=== PATIENT | female | born 1950 | race Caucasian/White ===

== ENCOUNTER 2020-04-14 16:45 | Inpatient (IN) | payer MEDICARE, OTHER ==
[2020-04-13] MEDS: METOPROLOL TART IMMED RELEASE 25 MG TABLET. PO SCH (22:35)
[~2020-04-14] VITALS: Ht 160 cm; Wt 73.0 kg
[~2020-04-14 16:45] MED LIST: ACET650S11 PR; AMLO10TA8 PO; ASPI-630 PO; ATOR10TA60 PO; BISA10SU4 PR; CLON1PAT6 TD; DARBEPOETIN ALFA IN POLYSORBAT SQ; FAMO20TA5 PO; HEPA50003 SQ; HYDR-2869 PO; HYDR200T5 PO; INSU100I11 SQ; METO25TA4 PO; NYST60PO TP; ONDA4TAB12 PO; Tpn Per Pharmacy MC; [UNRECOGNIZED DRUG - OTHER] MC
--- NOTE | 2020-04-14 16:48 | PHYS DOC ---
Past Medical History Past Medical History: Diabetes-Type II, Other Additional Past Medical Histor: RA,COVID-19 Past Surgical History: Other Additional Past Surgical Histo: COLON RESECTION/ABSCESS Smoking Status: Never Smoker Alcohol Use: Occasionally General Adult EDM: Chief Complaint: CHEST PAIN HPI: HPI: Patient is a 70 year old female who was brought here by EMS from home due to substernal chest pain that radiated to her right shoulder. Symptoms started 2- hour ago. Patient was given 224 mg aspirin and 1 dose of nitroglycerin by EMS. Patient said the pain improved with the nitroglycerin. Patient denies any cough or fever. Patient was treated for COVID-19 infection in January, had subsequent TWO negative COVID-19 INFECTION SINCE. Patient denies any history of coronary disease. Patient denies a history hypertension. Review of Systems: Review of Systems: Constitutional: Denies fever or chills. [] Eyes: Denies change in visual acuity. [] HENT: Denies nasal congestion or sore throat. [] Respiratory: Denies cough or shortness of breath. [] Cardiovascular: Positive chest pain, HEART palpitation. GI: Denies abdominal pain, nausea, vomiting, bloody stools or diarrhea. [] : Denies dysuria. [] Musculoskeletal: Denies back pain or joint pain. [] Integument: Denies rash. [] Neurologic: Denies headache, focal weakness or sensory changes. [] Endocrine: Denies polyuria or polydipsia. [] Lymphatic: Denies swollen glands. [] Psychiatric: Denies depression or anxiety. [] Heart Score: HEART Score for Chest Pain: HEART Score for Chest Pain Response (Comments) Value History Moderately Suspicious 1 ECG Nonspecific Repolarizatio 1 Age > 65 2 Risk Factors 1 or 2 Risk Factors 1 Troponin < Normal Limit 0 Total 5 Risk Factors: Risk Factors: DM, Current or recent (<one month) smoker, HTN, HLP, family history of CAD, obesity. Risk Scores: Score 0 - 3: 2.5% MACE over next 6 weeks - Discharge Home Score 4 - 6: 20.3% MACE over next 6 weeks - Admit for Clinical Observation Score 7 - 10: 72.7% MACE over next 6 weeks - Early Invasive Strategies Allergies: Allergies: Allergies Coded Allergies Type Severity Reaction Last Updated Verified erythromycin base Allergy Intermediate 20 Yes Physical Exam: PE: Constitutional: Well developed, well nourished, no acute distress, non-toxic appearance. [] HENT: Normocephalic, atraumatic, bilateral external ears normal, oropharynx moist, no oral exudates, nose normal. [] Eyes: PERRLA, EOMI, conjunctiva normal, no discharge. [] Neck: Normal range of motion, no tenderness, supple, no stridor. [] Cardiovascular irregular irregular rhythm rapid heart rate, no murmur, NO EDEMA Lungs & Thorax: Bilateral breath sounds clear to auscultation [] Abdomen: Bowel sounds normal, soft, no tenderness, no masses, no pulsatile masses. [] Skin: Warm, dry, no erythema, no rash. [] Back: No tenderness, no CVA tenderness. [] Extremities: No tenderness, no cyanosis, no clubbing, ROM intact, no edema. [] Neurologic: Alert and oriented X 3, normal motor function, normal sensory function, no focal deficits noted. [] Psychologic: Affect normal, judgement normal, mood normal. [] Current Patient Data: Labs: Current Medications Medications (Trade) Dose Ordered Sig/Krystal Route PRN Reason Start Time Stop Time Status Last Admin Dose Admin Diltiazem HCl (Cardizem Iv Push) 20 mg 1X ONCE IVP 04/14/20 17:00 04/14/20 17:01 DC 04/14/20 17:03 Diltiazem HCl 125 mg/Sodium Chloride 125 ml @ 5 mls/hr 1X ONCE IV 04/14/20 17:00 04/15/20 17:59 Sodium Chloride 1,000 ml @ 1,000 mls/hr 1X ONCE IV 04/14/20 17:15 04/14/20 18:14 04/14/20 17:02 EKG: EKG: EKG was done at 1648, heart rate 167 bpm, rapid heart rate, irregular rhythm, consistent with A. fib with RVR [ Radiology/Procedures: Radiology/Procedures: [][facility] [address] [place] [address] IMAGING REPORT Signed PATIENT: TIMOTHY WILLIS ACCOUNT: [id number] : 1950 LOCATION: ER AGE: 70 SEX: F EXAM STATUS: REG ER ORD. PHYSICIAN: ESTEFANI BETH DO REASON: CHEST PAIN PROCEDURE: PORTABLE CHEST 1V Exam: Chest one view INDICATION: Chest pain TECHNIQUE: Frontal view of the chest Comparisons: 03/04/2020 FINDINGS: The cardiomediastinal silhouette and pulmonary vessels are within normal limits. Patchy airspace disease in the right mid and lower lung. No pleural effusion. IMPRESSION: Patchy airspace disease in the right mid and lower lung, may relate to pneumonia. Follow-up imaging posttreatment to ensure resolution. Electronically signed by: Nathan Gibson MD (04/14/2020 5:44 PM) [id number] DICTATED and SIGNED BY: NATHAN GIBSON MD DATE: 04/14/20 1744 Course & Med Decision Making: Course & Med Decision Making Pertinent Labs and Imaging studies reviewed. (See chart for details) Patient is a 70-year-old female who was brought here by EMS from home due to chest pain and heart palpitation. Patient was found to be in atrial fibrilla tion with RVR, heart rate ranged from 157-200 beats per minute. Patient also has infiltration on the right side on lung, consistent with pneumonia. Patient will be admitted to hospital for further evaluation and treatment. Critical care time was [45] minutes which includes time at bedside, spent in discussion of patient's care with specialist and/or family members, with interpretation of laboratory and/or radiological studies and is exclusive of procedures. Dragon Disclaimer: Dragon Disclaimer: This electronic medical record was generated, in whole or in part, using a voice recognition dictation system. Departure Departure Impression: Primary Impression: Atrial fibrillation with RVR Additional Impressions: Pneumonia Chest pain Disposition: ADMITTED INPATIENT Admitting Physician: Woody Myers Condition: STABLE Referrals: WOODY MYERS MD (PCP) Justicifation of Admission Dx: Justifications for Admission: Justification of Admission Dx: Yes Comminuty Aquired Pneumonia: Hemodynamic Instability ESTEFANI BETH DO Apr 14, 2020 16:48
[2020-04-14] MEDS ORDERED: DILTIAZEM HCL 125 MG in IV NORMAL SALINE 100ML 100 ML IV ONE (17:00)
[2020-04-14] MEDS ORDERED: dilTIAZem IV PUSH 25 MG/5 ML VIAL IVP ONE (17:00)
[2020-04-14 17:05] LABS: BASO # 0.1 x10^3/uL (0.0-0.2); BASO % 1 % (0-3); EOS # 0.2 x10^3/uL (0.0-0.7); EOS % 1 % (0-3); HEMATOCRIT 34.1 % (36.0-47.0); HEMOGLOBIN 11.4 g/dL (12.0-15.5); LYMPH # 2.3 x10^3/uL (1.0-4.8); LYMPH % 13 % (24-48); MEAN CORPUSCULAR HEMOGLOBIN 30 pg (25-35); MEAN CORPUSCULAR HGB CONC 34 g/dL (31-37); MEAN CORPUSCULAR VOLUME 89 fL (79-100); MONO # 1.3 x10^3/uL (0.0-1.1); MONO % 7 % (0-9); NEUT # 13.9 x10^3/uL (1.8-7.7); NEUT % 78 % (31-73); PLATELET COUNT 347 x10^3/uL (140-400); RED BLOOD COUNT 3.83 x10^6/uL (3.50-5.40); RED CELL DISTRIBUTION WIDTH 16.8 % (11.5-14.5); WHITE BLOOD COUNT 17.8 x10^3/uL (4.0-11.0)
[2020-04-14 17:14] LABS: PROTHROMBIN TIME PATIENT 13.6 SEC (11.7-14.0)
[2020-04-14] MEDS ORDERED: IV NORMAL SALINE 1000ML BAG 1,000 ML IV ONE (17:15)
[2020-04-14 17:29] LABS: ALBUMIN 2.9 g/dL (3.4-5.0); ALBUMIN/GLOBULIN RATIO 0.8 (1.0-1.7); CALCIUM 6.2 mg/dL (8.5-10.1); CREATININE 1.3 mg/dL (0.6-1.0); GFR 40.6; MAGNESIUM 0.6 mg/dL (1.8-2.4); POTASSIUM 3.2 mmol/L (3.5-5.1); TOTAL BILIRUBIN 0.6 mg/dL (0.2-1.0); TOTAL PROTEIN 6.6 g/dL (6.4-8.2)
[2020-04-14 17:31] LABS: FREE T4 1.5 ng/dL (0.76-1.46); THYROID STIM HORMONE (TSH) 0.788 uIU/mL (0.358-3.74)
--- NOTE | 2020-04-14 17:47 | RAD ---
Exam: Chest one view INDICATION: Chest pain TECHNIQUE: Frontal view of the chest Comparisons: 03/04/2020 FINDINGS: The cardiomediastinal silhouette and pulmonary vessels are within normal limits. Patchy airspace disease in the right mid and lower lung. No pleural effusion. IMPRESSION: Patchy airspace disease in the right mid and lower lung, may relate to pneumonia. Follow-up imaging posttreatment to ensure resolution. Electronically signed by: Nathan Martinez MD (04/14/2020 5:44 PM) [id number]
[2020-04-14] MEDS ORDERED: ONDANSETRON PF 4 MG/2 ML VIAL. IV PRN (18:00)
[2020-04-14 18:12] LABS: % LYMPHS 9 % (24-48); % SEGS 91 % (35-66); PLT ESTIMATE ADEQUATE (ADEQUATE)
[2020-04-14] MEDS ORDERED: POTASSIUM CHLORIDE 20 MEQ TABLET.ER. PO ONE ×2 (18:15→22:00)
[2020-04-14] MEDS ORDERED: CALCIUM CHLORIDE 1,000 MG/10 ML DISP.SYRIN IV ONE (18:15)
[2020-04-14] MEDS ORDERED: cefTRIAXone IV Push 1 GM VIAL. IVP ONE (18:30)
[2020-04-14 20:05] VITALS: BP 154/92
--- NOTE | 2020-04-14 20:05 | NUR ---
Pt arrived to unit per cart pt ambulated to room with standby assist and walker, pt placed on monitor and oriented to surroundings vs obtained and stable pt denied any chest pain at this time poc explained call light placed in reach assessment completed will resume care and continue to monitor pt.
[2020-04-14 21:14] VITALS: BP 146/66
[2020-04-14] MEDS ORDERED: GLIM4TAB8 PO (21:14)
[2020-04-14] MEDS ORDERED: PRED1TAB3 PO (21:14)
[2020-04-14] MEDS ORDERED: MELA5TAB20 PO (21:14)
[2020-04-14] MEDS ORDERED: PANT40TA77 PO (21:14)
[2020-04-14] MEDS ORDERED: CIPR250T30 PO (21:14)
[2020-04-14] MEDS ORDERED: METO25TA4 PO (21:14)
[2020-04-14] MEDS ORDERED: AMLO5TAB10 PO (21:14)
--- NOTE | 2020-04-14 21:28 | NUR ---
Call Placed to Dr. Myers re: home medications and further orders.
--- NOTE | 2020-04-14 21:57 | NUR ---
returned call orders received.
[2020-04-14] MEDS ORDERED: MAGNESIUM OXIDE 400 MG TABLET PO ONE (22:00)
[2020-04-14] MEDS ORDERED: ONDANSETRON ODT 4 MG TAB.RAPDIS. PO PRN (22:15)
[2020-04-14] MEDS: ATORVASTATIN CALCIUM 10 MG TABLET. PO SCH (22:35)
[2020-04-14] MEDS: CIPROFLOXACIN HCL 250 MG TABLET. PO SCH (22:35)
[2020-04-14] MEDS: ALPRAZolam 0.25 MG TABLET PO PRN (22:35)
--- NOTE | 2020-04-14 22:35 | EKG ---
[facility] [address] [place] [address] Test Date: 2020-04-14 Test Time: 16:48:07 Pat Name: ITMOTHY WILLIS Department: Room: [facility] 1 Gender: F Recooperer: : 1950 Requested By: ESTEFANI BTEH Order Number: [id number] Reading MD: Lee Hernandez Measurements Intervals [place] Rate: 167 P: MO: QRS: 2 QRSD: 92 T: 72 QT: 286 QTc: 485 Interpretive Statements ATRIAL FIBRILLATION WITH RVR ST & T ABNORMALITY, CONSIDER HIGH LATERAL ISCHEMIA OR LEFT VENTRICULAR STRAIN Electronically Signed On 05-11-2020 12:46:08 CDT by Lee Hernandez
[2020-04-14] MEDS ORDERED: DILTIAZEM HCL 125 MG in IV NORMAL SALINE 100ML 100 ML IV PRN (23:00)
[2020-04-14 23:06] VITALS: BP 152/91
[2020-04-15] VITALS (9 sets, daily range): BP systolic 124–149; BP diastolic 64–86
[2020-04-15] MEDS: ACETAMINOPHEN 325 MG TABLET. PO PRN ×2 (00:14→22:15)
--- NOTE | 2020-04-15 00:20 | NUR ---
Call placed to Dr. Pringle re pt c/oo increase chest pain with pain radiating to rt arm and neck.
--- NOTE | 2020-04-15 00:41 | EKG ---
[facility] [address] [place] [address] Test Date: 2020-04-15 Test Time: 00:36:41 Pat Name: TIMOTHY WILLIS Department: Room: [facility] Gender: F Collect On Delivery Clerk: [facility] : 1950 Requested By: WOODY SAMPSON Order Number: [id number] Reading MD: Chris Velazquez MD Measurements Intervals [place] Rate: 117 P: 0 MD: 96 QRS: 14 QRSD: 92 T: 66 QT: 322 QTc: 454 Interpretive Statements SINUS TACHYCARDIA Electronically Signed On 04-16-2020 16:22:51 CDT by Chris Velazquez MD
--- NOTE | 2020-04-15 01:10 | NUR ---
Dr. Pringle returned call pain medication orders received no further orders given troponin result given will see pt in a.m..
[2020-04-15] MEDS ORDERED: MORPHINE SULFATE 2 MG/ML VIAL. IV PRN (01:15)
--- NOTE | 2020-04-15 01:38 | NUR ---
Cardizem gtt titrated off pt hr 90-100 and in SR/ST will monitor pt.
--- NOTE | 2020-04-15 02:05 | NUR ---
Call placed to Dr. Myers RE: orders and positive sepsis screen.
[2020-04-15] MEDS ORDERED: FUROSEMIDE 40 MG/4 ML VIAL. IVP ONE (02:30)
[2020-04-15] MEDS: PANTOPRAZOLE 40 MG TABLET.DR. PO SCH (06:09)
[2020-04-15] MEDS: CIPROFLOXACIN HCL 250 MG TABLET. PO SCH (08:51)
[2020-04-15] MEDS: predniSONE 10 MG TABLET PO SCH (08:51)
[2020-04-15] MEDS: GLIMEPIRIDE 2 MG TABLET. PO SCH (08:52)
[2020-04-15] MEDS: ASPIRIN CHEWABLE 81 MG TABLET. PO SCH (08:52)
[2020-04-15] MEDS: METOPROLOL TART IMMED RELEASE 25 MG TABLET. PO SCH ×2 (08:52→18:07)
[2020-04-15] MEDS: amLODIPine BESYLATE 5 MG TABLET PO SCH (08:52)
--- NOTE | 2020-04-15 10:16 | PDOC2 ---
CARDIAC CONSULT DATE OF CONSULT Date of Consult DATE: 04/15/20 TIME: 10:06 REASON FOR CONSULT Reason for Consult: Chest pain, AFIB RVR REFERRING PHYSICIAN Referring Physician: Mitchell SOURCE Source: Chart review HISTORY OF PRESENT ILLNESS HISTORY OF PRESENT ILLNESS This is a pleasant 70 yo female known to me who came in with palpitations that started yesterday morning. Associated with chest tightness which radiates to amisha k and right arm. Upon admission she was noted with AFIB RVR. This was noted from previous admission when she was hospitalized due to covid where she ended up with vent and significant stay in the hospital. She was later discharge at [facility] facility and then [facility] rehab and was discharged 2 weeks ago to home. No recent falls or injury. Currently no SOA and no chest pain. No fever or chills. PAST MEDICAL HISTORY Cardiovascular: CHF Pulmonary: Pneumonia (prior covidARDS) Heme/Onc: Anemia NOS Musculoskeletal: Osteoarthritis Rheumatologic: Rheumatoid arthritis Renal/: Chronic renal insuff, UTI Endocrine: Diabetes (2) PAST SURGICAL HISTORY Past Surgical History dialysis cath placement FAMILY HISTORY Family History: Family History Unknown SOCIAL HISTORY ALCOHOL: none Drugs: None CURRENT MEDICATIONS CURRENT MEDICATIONS Current Medications Medications (Trade) Dose Ordered Sig/Krystal Route PRN Reason Start Time Stop Time Status Last Admin Dose Admin Diltiazem HCl (Cardizem Iv Push) 20 mg 1X ONCE IVP 04/14/20 17:00 04/14/20 17:01 DC 04/14/20 17:03 Diltiazem HCl 125 mg/Sodium Chloride 125 ml @ 5 mls/hr 1X ONCE IV 04/14/20 17:00 04/15/20 17:59 04/14/20 17:08 Sodium Chloride 1,000 ml @ 1,000 mls/hr 1X ONCE IV 04/14/20 17:15 04/14/20 18:14 DC 04/14/20 17:02 Calcium Chloride (Calcium Chloride) 1,000 mg 1X ONCE IV 04/14/20 18:15 04/14/20 18:16 DC 04/14/20 18:34 Potassium Chloride (Klor-Con) 40 meq 1X ONCE PO 04/14/20 18:15 04/14/20 18:16 DC 04/14/20 18:39 Ceftriaxone Sodium (Rocephin) 1 gm 1X ONCE IVP 04/14/20 18:30 04/14/20 18:31 DC 04/14/20 18:52 Magnesium Oxide (Magnesium Oxide) 800 mg 1X ONCE PO 04/14/20 22:00 04/14/20 22:02 DC 04/14/20 22:35 Potassium Chloride (Klor-Con) 20 meq 1X ONCE PO 04/14/20 22:00 04/14/20 22:02 DC 04/14/20 22:35 Alprazolam (Xanax) 0.25 mg PRN Q8HRS PRN PO ANXIETY / AGITATION 04/14/20 22:00 04/14/20 22:35 Amlodipine Besylate (Norvasc) 5 mg DAILY PO 04/15/20 09:00 04/15/20 08:52 Aspirin (Aspirin Chewable) 81 mg DAILYWBKFT PO 04/15/20 08:00 04/15/20 08:52 Atorvastatin Calcium (Lipitor) 10 mg QHS PO 04/14/20 22:30 04/14/20 22:35 Ciprofloxacin (Cipro) 250 mg BID PO 04/14/20 22:30 04/15/20 08:51 Metoprolol Tartrate (Lopressor) 25 mg BID PO 04/14/20 22:30 04/15/20 08:52 Pantoprazole Sodium (Protonix) 40 mg DAILYAC PO 04/15/20 07:30 04/15/20 06:09 Prednisone (Prednisone) 10 mg DAILY PO 04/15/20 09:00 04/15/20 08:51 Acetaminophen (Tylenol) 650 mg PRN Q6HRS PRN PO PAIN 04/14/20 23:45 04/15/20 00:14 Morphine Sulfate (Morphine Sulfate) 2 mg PRN Q2HR PRN IV PAIN 04/15/20 01:15 04/15/20 01:23 Furosemide (Lasix) 40 mg 1X ONCE IVP 04/15/20 02:30 04/15/20 02:31 DC 04/15/20 02:31 ALLERGIES ALLERGIES: Coded Allergies: erythromycin base (Verified Allergy, Intermediate, 02/03/20) ROS Review of System 14 point ROS evlauated with pertinent positives noted per HPI PHYSICAL EXAM PHYSICAL EXAM Discussed with RN General: Alert, Oriented X3, Cooperative, No acute distress HEENT: Atraumatic Lungs: Other (diminished) Abdomen: Soft Extremities: No cyanosis Skin: No breakdown Neuro: Normal speech Psych/Mental Status: Mental status NL VITALS/I&O VITALS/I&O: Vital Signs Date Time Temp Pulse Resp B/P (MAP) Pulse Ox O2 Delivery O2 Flow Rate FiO2 04/15/20 08:52 107 132/80 04/15/20 07:00 97.0 16 97 Room Air 3.0 97.0 I & O 04/14/20 04/14/20 04/15/20 15:00 23:00 07:00 Intake Total 1940 ml 110 ml Output Total 600 ml 1500 ml Balance 1340 ml -1390 ml LABS Lab: Laboratory Tests Test 04/14/20 16:50 04/14/20 20:14 04/14/20 22:41 04/14/20 22:50 White Blood Count 17.8 x10^3/uL (4.0-11.0) H Red Blood Count 3.83 x10^6/uL (3.50-5.40) Hemoglobin 11.4 g/dL (12.0-15.5) L Hematocrit 34.1 % (36.0-47.0) L Mean Corpuscular Volume 89 fL (79-100) Mean Corpuscular Hemoglobin 30 pg (25-35) Mean Corpuscular Hemoglobin Concent 34 g/dL (31-37) Red Cell Distribution Width 16.8 % (11.5-14.5) H Platelet Count 347 x10^3/uL (140-400) Neutrophils (%) (Auto) 78 % (31-73) H Lymphocytes (%) (Auto) 13 % (24-48) L Monocytes (%) (Auto) 7 % (0-9) Eosinophils (%) (Auto) 1 % (0-3) Basophils (%) (Auto) 1 % (0-3) Neutrophils # (Auto) 13.9 x10^3/uL (1.8-7.7) H Lymphocytes # (Auto) 2.3 x10^3/uL (1.0-4.8) Monocytes # (Auto) 1.3 x10^3/uL (0.0-1.1) H Eosinophils # (Auto) 0.2 x10^3/uL (0.0-0.7) Basophils # (Auto) 0.1 x10^3/uL (0.0-0.2) Segmented Neutrophils % 91 % (35-66) H Lymphocytes % 9 % (24-48) L Platelet Estimate Adequate (ADEQUATE) Prothrombin Time 13.6 SEC (11.7-14.0) Prothrombin Time INR 1.1 (0.8-1.1) Activated Partial Thromboplast Time 26 SEC (24-38) Sodium Level 143 mmol/L (136-145) Potassium Level 3.2 mmol/L (3.5-5.1) L Chloride Level 104 mmol/L (98-107) Carbon Dioxide Level 23 mmol/L (21-32) Anion Gap 16 (6-14) H Blood Urea Nitrogen 20 mg/dL (7-20) Creatinine 1.3 mg/dL (0.6-1.0) H Estimated GFR (Cockcroft-Gault) 40.6 BUN/Creatinine Ratio 15 (6-20) Glucose Level 233 mg/dL (70-99) H Lactic Acid Level 2.2 mmol/L (0.4-2.0) H 3.2 mmol/L (0.4-2.0) H Calcium Level 6.2 mg/dL (8.5-10.1) L Magnesium Level 0.6 mg/dL (1.8-2.4) L Total Bilirubin 0.6 mg/dL (0.2-1.0) Aspartate Amino Transferase (AST) 117 U/L (15-37) H Alanine Aminotransferase (ALT) 250 U/L (14-59) H Alkaline Phosphatase 95 U/L (46-116) Troponin I Quantitative < 0.017 ng/mL (0.000-0.055) 0.110 ng/mL (0.000-0.055) LN-Dcv-A-Type Natriuretic Peptide 42752 pg/mL (0-124) H Total Protein 6.6 g/dL (6.4-8.2) Albumin 2.9 g/dL (3.4-5.0) L Albumin/Globulin Ratio 0.8 (1.0-1.7) L Lipase 212 U/L (73-393) Thyroid Stimulating Hormone (TSH) 0.788 uIU/mL (0.358-3.74) Free Thyroxine 1.50 ng/dL (0.76-1.46) H Glucose (Fingerstick) 271 mg/dL (70-99) H Test 04/15/20 00:01 04/15/20 06:25 04/15/20 07:14 Troponin I Quantitative 0.139 ng/mL (0.000-0.055) 0.103 ng/mL (0.000-0.055) Magnesium Level 0.9 mg/dL (1.8-2.4) L Glucose (Fingerstick) 64 mg/dL (70-99) L Laboratory Tests 04/14/20 16:50 Laboratory Tests 04/14/20 16:50 ASSESSMENT/PLAN ASSESSMENT/PLAN 1. Possible Pneumonia: prior recovered Covid-19 2. AFIB RVR: in the setting of metabolic derangement and PNA. Paroxysmal per chart review. Presently SR/ST with intermittent bursts 3. Chest pain: likely from RVR 3. Possible sepsis 4. DARLENE on CKD 5. Mild Elevated troponin: suspect demand mediate 6. Acute on Chronic diastolic CHF: SOA better 7. DM2 8. Chronic steroid use with underlying hx of RA Recommendations Retest covid pending TTE if negative. MCOT as an outpt Replace Mg and K Agree with metoprolol, ASA for now. Will stop TTS 1 to allow room for further BB adjustment ABx per PCP HILARIO ENGLE [employer] Apr 15, 2020 10:16
[2020-04-15] MEDS ORDERED: MAGNESIUM SULFATE 4GM 100 ML IV ONE (10:30)
[2020-04-15 10:39] LABS: CALCIUM 7.1 mg/dL (8.5-10.1); CREATININE 1.2 mg/dL (0.6-1.0); GFR 44.5; POTASSIUM 3.7 mmol/L (3.5-5.1)
--- NOTE | 2020-04-15 11:19 | PDOC ---
Infectious Disease Note Vital Signs: Vital Signs Vital Signs Date Time Temp Pulse Resp B/P (MAP) Pulse Ox O2 Delivery O2 Flow Rate FiO2 04/15/20 08:52 107 132/80 04/15/20 08:00 Nasal Cannula 3.0 04/15/20 07:00 97.0 16 97 97.0 Medications: Inpatient Meds: Current Medications Medications (Trade) Dose Ordered Sig/Krystal Start Time Stop Time Status Last Admin Dose Admin Acetaminophen (Tylenol) 650 mg PRN Q6HRS PRN 04/14/20 23:45 04/15/20 00:14 650 MG Alprazolam (Xanax) 0.25 mg PRN Q8HRS PRN 04/14/20 22:00 04/14/20 22:35 0.25 MG Amlodipine Besylate (Norvasc) 5 mg DAILY 04/15/20 09:00 04/15/20 08:52 5 MG Aspirin (Aspirin Chewable) 81 mg DAILYWBKFT 04/15/20 08:00 04/15/20 08:52 81 MG Atorvastatin Calcium (Lipitor) 10 mg QHS 04/14/20 22:30 04/14/20 22:35 10 MG Calcium Chloride (Calcium Chloride) 1,000 mg 1X ONCE 04/14/20 18:15 04/14/20 18:16 DC 04/14/20 18:34 1,000 MG Ceftriaxone Sodium (Rocephin) 1 gm Q24H 04/15/20 18:00 Ciprofloxacin (Cipro) 250 mg BID 04/14/20 22:30 04/15/20 08:51 250 MG Clonidine HCl (Catapres Tts-2) 1 patch WEEKLY 04/21/20 09:00 Diltiazem HCl (Cardizem Iv Push) 20 mg 1X ONCE 04/14/20 17:00 04/14/20 17:01 DC 04/14/20 17:03 20 MG Diltiazem HCl 125 mg/Sodium Chloride 125 ml @ 5 mls/hr CONT PRN 04/14/20 23:00 Furosemide (Lasix) 40 mg 1X ONCE 04/15/20 02:30 04/15/20 02:31 DC 04/15/20 02:31 40 MG Glimepiride (Amaryl) 4 mg DAILY 04/15/20 09:00 Magnesium Oxide (Magnesium Oxide) 800 mg 1X ONCE 04/14/20 22:00 04/14/20 22:02 DC 04/14/20 22:35 800 MG Magnesium Sulfate 100 ml @ 25 mls/hr 1X ONCE 04/15/20 10:30 04/15/20 14:29 04/15/20 11:00 25 MLS/HR Metoprolol Tartrate (Lopressor) 25 mg BID 04/14/20 22:30 04/15/20 08:52 25 MG Morphine Sulfate (Morphine Sulfate) 2 mg PRN Q2HR PRN 04/15/20 01:15 04/15/20 01:23 2 MG Ondansetron HCl (Zofran Odt) 4 mg PRN Q4HRS PRN 04/14/20 22:15 Ondansetron HCl (Zofran) 4 mg PRN Q8HRS PRN 04/14/20 18:00 04/15/20 17:59 Pantoprazole Sodium (Protonix) 40 mg DAILYAC 04/15/20 07:30 04/15/20 06:09 40 MG Potassium Chloride (Klor-Con) 20 meq 1X ONCE 04/14/20 22:00 04/14/20 22:02 DC 04/14/20 22:35 20 MEQ Prednisone (Prednisone) 10 mg DAILY 04/15/20 09:00 04/15/20 08:51 10 MG Sodium Chloride 1,000 ml @ 1,000 mls/hr 1X ONCE 04/14/20 17:15 04/14/20 18:14 DC 04/14/20 17:02 1,000 MLS/HR Labs: Lab Laboratory Tests Test 04/14/20 16:50 04/14/20 20:14 04/14/20 22:41 04/14/20 22:50 White Blood Count 17.8 x10^3/uL (4.0-11.0) Red Blood Count 3.83 x10^6/uL (3.50-5.40) Hemoglobin 11.4 g/dL (12.0-15.5) Hematocrit 34.1 % (36.0-47.0) Mean Corpuscular Volume 89 fL (79-100) Mean Corpuscular Hemoglobin 30 pg (25-35) Mean Corpuscular Hemoglobin Concent 34 g/dL (31-37) Red Cell Distribution Width 16.8 % (11.5-14.5) Platelet Count 347 x10^3/uL (140-400) Neutrophils (%) (Auto) 78 % (31-73) Lymphocytes (%) (Auto) 13 % (24-48) Monocytes (%) (Auto) 7 % (0-9) Eosinophils (%) (Auto) 1 % (0-3) Basophils (%) (Auto) 1 % (0-3) Neutrophils # (Auto) 13.9 x10^3/uL (1.8-7.7) Lymphocytes # (Auto) 2.3 x10^3/uL (1.0-4.8) Monocytes # (Auto) 1.3 x10^3/uL (0.0-1.1) Eosinophils # (Auto) 0.2 x10^3/uL (0.0-0.7) Basophils # (Auto) 0.1 x10^3/uL (0.0-0.2) Segmented Neutrophils % 91 % (35-66) Lymphocytes % 9 % (24-48) Platelet Estimate Adequate (ADEQUATE) Prothrombin Time 13.6 SEC (11.7-14.0) Prothromb Time International Ratio 1.1 (0.8-1.1) Activated Partial Thromboplast Time 26 SEC (24-38) Sodium Level 143 mmol/L (136-145) Potassium Level 3.2 mmol/L (3.5-5.1) Chloride Level 104 mmol/L (98-107) Carbon Dioxide Level 23 mmol/L (21-32) Anion Gap 16 (6-14) Blood Urea Nitrogen 20 mg/dL (7-20) Creatinine 1.3 mg/dL (0.6-1.0) Estimated GFR (Cockcroft-Gault) 40.6 BUN/Creatinine Ratio 15 (6-20) Glucose Level 233 mg/dL (70-99) Lactic Acid Level 2.2 mmol/L (0.4-2.0) 3.2 mmol/L (0.4-2.0) Calcium Level 6.2 mg/dL (8.5-10.1) Magnesium Level 0.6 mg/dL (1.8-2.4) Total Bilirubin 0.6 mg/dL (0.2-1.0) Aspartate Amino Transf (AST/SGOT) 117 U/L (15-37) Alanine Aminotransferase (ALT/SGPT) 250 U/L (14-59) Alkaline Phosphatase 95 U/L (46-116) Troponin I Quantitative < 0.017 ng/mL (0.000-0.055) 0.110 ng/mL (0.000-0.055) SD-Nrz-R-Type Natriuretic Peptide 20133 pg/mL (0-124) Total Protein 6.6 g/dL (6.4-8.2) Albumin 2.9 g/dL (3.4-5.0) Albumin/Globulin Ratio 0.8 (1.0-1.7) Lipase 212 U/L (73-393) Thyroid Stimulating Hormone (TSH) 0.788 uIU/mL (0.358-3.74) Free Thyroxine 1.50 ng/dL (0.76-1.46) Glucose (Fingerstick) 271 mg/dL (70-99) Test 04/15/20 00:01 04/15/20 06:25 04/15/20 07:14 Troponin I Quantitative 0.139 ng/mL (0.000-0.055) 0.103 ng/mL (0.000-0.055) Sodium Level 146 mmol/L (136-145) Potassium Level 3.7 mmol/L (3.5-5.1) Chloride Level 106 mmol/L (98-107) Carbon Dioxide Level 27 mmol/L (21-32) Anion Gap 13 (6-14) Blood Urea Nitrogen 19 mg/dL (7-20) Creatinine 1.2 mg/dL (0.6-1.0) Estimated GFR (Cockcroft-Gault) 44.5 Glucose Level 90 mg/dL (70-99) Calcium Level 7.1 mg/dL (8.5-10.1) Magnesium Level 0.9 mg/dL (1.8-2.4) Glucose (Fingerstick) 64 mg/dL (70-99) Objective: Assessment: Patient seen and examined ID consult dictated Impression Chest pain Hypoxemia Leukocytosis and lactic acidosis A. fib with RVR High BNP and troponin History of COVID-02 February 2020 with prolonged hospitalization Rheumatoid arthritis on prednisone Plan: Plan of Care Continue ceftriaxone Add doxy Stop Cipro Follow-up labs and cultures Continue supportive care Thank you [id number] CARMEN DANIELS MD Apr 15, 2020 11:19
--- NOTE | 2020-04-15 11:38 | CONS ---
DATE OF CONSULTATION: 04/15/2020 REFERRING PHYSICIAN: Johnathon Myers MD REASON FOR CONSULTATION: History of COVID-19 infection with cough. HISTORY OF PRESENT ILLNESS: A 70-year-old female diagnosed with COVID-19 infection in 01/2020 requiring prolonged hospitalization here. The patient was brought from home to [facility] due to substernal chest pain radiating to the right shoulder and associated cough, palpitation which started 2 hours prior to admission. The patient received aspirin and nitroglycerin by EMS. The patient was found to have AFib with rapid RVR. She denies any fever, nausea, vomiting, diarrhea, abdominal pain. White count was 17.8, hemoglobin of 11.9, platelets of 347. [place] [address]. Lactate of 2.2. Troponin elevation. COVID-19 has been sent out. The patient was started on ceftriaxone and ciprofloxacin. ID consult has been requested for antibiotic management. The patient remains in sinus tachycardia. Denies any fevers, headache. Does have cough, brings up some sputum, no blood in it. Chest pain has improved. Palpitation has improved. Denies any nausea, vomiting, diarrhea, abdominal pain. Denies any recent travel. PAST MEDICAL HISTORY: Positive for rheumatoid arthritis, diabetes, COVID positive in 01/2020 with hypoxic respiratory failure, renal insufficiency in the past, history of colon resection for abscess, coronary artery disease. SOCIAL HISTORY: Denies smoking, ETOH. ALLERGIES: ERYTHROMYCIN. CURRENT MEDICATIONS: Ceftriaxone, Cipro. PHYSICAL EXAMINATION: VITAL SIGNS: Temperature 97, pulse 107, respiratory rate 16, blood pressure 132/80, oxygen saturation 97% on 3 liters by nasal cannula. GENERAL: Alert and oriented x 3 female, in no acute distress, on O2. HEENT: Normocephalic, atraumatic. Anicteric. No thrush. Oral mucosa moist. NECK: Supple, no JVD, no lymphadenopathy. LUNGS: Clear bilaterally. No wheezing. HEART: S1, S2, tachycardia, irregular. ABDOMEN: Soft, nontender, nondistended, no rebound, no guarding. EXTREMITIES: No edema, no cyanosis. DERMATOLOGIC: Warm, dry. No generalized rash. NEUROLOGIC: Alert and oriented x 3, grossly nonfocal. PSYCHIATRIC: Cooperative, appropriate mood and affect. LABORATORY DATA: WBC 17.8, hemoglobin 11.4, hematocrit 34.1, platelets 347. Sodium 146, potassium 3.7, chloride 106, bicarbonate 27, BUN 19, creatinine 1.2, glucose 90. Lactate 3.2. Troponin elevated. Magnesium 1.9, calcium 7.1. COVID-19 pending. IMPRESSION: 1. Chest pain with atrial fibrillation, rapid ventricular response. 2. Leukocytosis and lactic acidosis. 3. Hypoxemia with pulmonary infiltrates. 4. Diabetes. 5. Rheumatoid arthritis. 6. History of colon resection. 7. History of COVID-19 in 01/2020 with prolonged hospitalization. 8. High BNP. 9. Mild acute kidney injury. 10. Hypomagnesemia, hypocalcemia. 11. The patient on prednisone. RECOMMENDATIONS: 1. Continue ceftriaxone. 2. Discontinue ciprofloxacin. 3. Start the patient on empiric doxycycline. 4. Follow up labs and cultures. 5. Follow up repeat COVID-19. 6. Continue supportive care. Thank you for allowing me to participate in this patient's care. If you have any questions, do not hesitate to contact me. Discussed with nursing staff. CARMEN DANIELS MD DR: JULIAN/siva JOB#: [id number] / [id number] CALLUM
[2020-04-15] MEDS: DOXYCYCLINE HYCLATE 100 MG TABLET PO SCH ×2 (11:59→20:53)
[2020-04-15] MEDS: cefTRIAXone IV Push 1 GM VIAL. IVP SCH (16:35)
--- NOTE | 2020-04-15 16:47 | NUR ---
SW following. Reviewed chart and spoke with RN. Pt from home with spouse. Pt was diagnosed with COVID back in January of 2020 and had a prolonged hospitalization. Pt discharged to [facility] on last admission. Pt being tested for COVID on this admission and results are pending. Pt on 3l 02 and IV Rocephin. PT/OT evaluation requested. SW to continue following.
--- NOTE | 2020-04-15 17:03 | HP ---
ADMIT DATE: CHIEF COMPLAINT AND HISTORY OF PRESENT ILLNESS: This 70-year-old white female well known to me from followup in the office. The patient had sudden onset of chest pain and palpitations on the day of admission. EMS arrived at the house with the pulse rate was 180. I spoke with her on the phone. I reassured him that probably it was AFib, which she had had black transiently during her stay with COVID pneumonia with respiratory failure and prolonged mechanical ventilation. She went to [facility] after extubation and then to [facility] and has returned to home within the last week or so where she is making steady progresses for her strength, etc. She was indeed found to have AFib with RVR and was admitted to the hospital with a Cardizem drip. PAST MEDICAL HISTORY: Remarkable for the COVID-19 respiratory failure with pneumonia, rheumatoid arthritis, type 2 diabetes. PAST SURGICAL HISTORY: Remarkable for prior colon resection for diverticular abscess. MEDICATIONS: Brought with the patient, listed on the computer and have been addressed. ALLERGIES: SHE IS ALLERGIC TO ERYTHROMYCIN. SOCIAL HISTORY: She is nonsmoker and rarely drinks alcohol. Does not abuse drugs. FAMILY HISTORY: Noncontributory. REVIEW OF SYSTEMS: As mentioned above. PHYSICAL EXAMINATION: GENERAL: She is a well-developed, well-nourished white female, appears in no acute distress. VITAL SIGNS: Stable. She is afebrile. HEAD, EYES, EARS, NOSE AND THROAT: Unremarkable. NECK: Supple without bruit or thyromegaly. CHEST: Clear to auscultation and percussion. HEART: She is in a mild sinus tachycardia at the time of my exam with a rate of 104. ABDOMEN: Soft, nontender, without hepatosplenomegaly or masses. EXTREMITIES: Without cyanosis, clubbing, edema. NEUROLOGIC: She is intact. LABORATORY DATA: Initial investigation reveals some very mild acute kidney injury with creatinine of 1.3, but she was 0.8 or 0.9 in my office a week ago. She is hypokalemic with a potassium of 3.2. She has protein-calorie malnutrition with albumin of 2.9. She does have elevated liver function tests with an AST of 117, ALT of 250 which were much higher during the hospitalization, but I believe it returned to normal. Initial BNP is 17,395 and we have been unable to do an echo on her due to her COVID positive status, the last hospitalization should do that during the stay. TSH is within normal limits. Lactic acid was elevated initially at 2.2 and then increased to 3.2. Troponin was mildly elevated, but decreasing. INR was within normal limits. Initial white count of 17,800 with a left shift, but she does take prednisone at home. Chest x-ray on admission shows patchy airspace disease in the right mid and lower lung, may be possibly related to pneumonia. IMPRESSION: 1. Atrial fibrillation with rapid ventricular response, currently controlled with a Cardizem drip. 2. Hypokalemia and hypomagnesemia with replacement ordered. 3. Leukocytosis and possible pneumonia. Rocephin has been started. She was on Cipro for urinary tract infection prior to admission. 4. Mild acute kidney injury, protein-calorie malnutrition, COVID-19, respiratory failure survivor. PLAN: The patient has been admitted. Cardiology has been consulted. Cardizem will be continued. Rocephin has been started for pneumonia. ID has been consulted and the patient will be monitored, managed and treated appropriately. WOODY SAMPSON MD DR: GARRY/siva JOB#: [id number] / [id number]
[2020-04-15] MEDS: MAGNESIUM OXIDE 400 MG TABLET PO SCH (20:53)
[2020-04-15] MEDS: LACTOBACILLUS RHAMNOSUS GG 1 CAPSULE. PO SCH (20:53)
[2020-04-15] MEDS: ATORVASTATIN CALCIUM 10 MG TABLET. PO SCH (20:53)
[2020-04-15] MEDS: ALPRAZolam 0.25 MG TABLET PO PRN (22:15)
[2020-04-16] MEDS: METOPROLOL TART IMMED RELEASE 25 MG TABLET. PO SCH ×2 (00:31→06:17)
[2020-04-16 03:12] VITALS: BP 127/70
[2020-04-16 03:31] LABS: BASO # 0.2 x10^3/uL (0.0-0.2); BASO % 1 % (0-3); EOS # 0.4 x10^3/uL (0.0-0.7); EOS % 3 % (0-3); HEMATOCRIT 33.3 % (36.0-47.0); HEMOGLOBIN 11.1 g/dL (12.0-15.5); LYMPH # 3.9 x10^3/uL (1.0-4.8); LYMPH % 24 % (24-48); MEAN CORPUSCULAR HEMOGLOBIN 30 pg (25-35); MEAN CORPUSCULAR HGB CONC 33 g/dL (31-37); MEAN CORPUSCULAR VOLUME 89 fL (79-100); MONO % 6 % (0-9); NEUT # 10.6 x10^3/uL (1.8-7.7); NEUT % 66 % (31-73); PLATELET COUNT 319 x10^3/uL (140-400); RED BLOOD COUNT 3.73 x10^6/uL (3.50-5.40); RED CELL DISTRIBUTION WIDTH 17.1 % (11.5-14.5); WHITE BLOOD COUNT 16.1 x10^3/uL (4.0-11.0)
[2020-04-16 03:47] LABS: ALBUMIN/GLOBULIN RATIO 0.9 (1.0-1.7); CALCIUM 7.2 mg/dL (8.5-10.1); CREATININE 1.1 mg/dL (0.6-1.0); GFR 49.2; TOTAL BILIRUBIN 0.4 mg/dL (0.2-1.0); TOTAL PROTEIN 6.3 g/dL (6.4-8.2)
[2020-04-16 07:00] VITALS: BP 149/89
[2020-04-16] MEDS: ACETAMINOPHEN 325 MG TABLET. PO PRN (09:13)
[2020-04-16] MEDS: GLIMEPIRIDE 2 MG TABLET. PO SCH (09:13)
[2020-04-16] MEDS: MAGNESIUM OXIDE 400 MG TABLET PO SCH ×2 (09:13→21:12)
[2020-04-16] MEDS: LACTOBACILLUS RHAMNOSUS GG 1 CAPSULE. PO SCH ×2 (09:13→21:12)
[2020-04-16] MEDS: DOXYCYCLINE HYCLATE 100 MG TABLET PO SCH ×2 (09:13→21:12)
[2020-04-16] MEDS: predniSONE 10 MG TABLET PO SCH (09:13)
[2020-04-16] MEDS: ASPIRIN CHEWABLE 81 MG TABLET. PO SCH (09:13)
[2020-04-16] MEDS: PANTOPRAZOLE 40 MG TABLET.DR. PO SCH (09:13)
[2020-04-16] MEDS: amLODIPine BESYLATE 5 MG TABLET PO SCH (09:14)
[2020-04-16 11:00] VITALS: BP 114/54
--- NOTE | 2020-04-16 12:03 | PDOC ---
Infectious Disease Note Subjective Subjective Feeling better, hungry Denies SOA/cough/heart palpitations/F/C/N/V ROS ROS as mentioned above Vital Sign Vital Signs Vital Signs Date Time Temp Pulse Resp B/P (MAP) Pulse Ox O2 Delivery O2 Flow Rate FiO2 04/16/20 09:14 108 149/89 04/16/20 07:00 99.2 18 95 Nasal Cannula 3.0 99.2 Physical Exam PHYSICAL EXAM GENERAL: Propped up in bed, alert in NAD HEENT: Oral cavity clear. NECK: Supple LUNGS: Clear bilaterally. No wheezing. HEART: S1, S2, irregular. ABDOMEN: Obese, soft, nontender EXTREMITIES: No gross edema, no cyanosis. DERMATOLOGIC: Warm, dry. No generalized rash. NEUROLOGIC: Alert and oriented x 3, grossly nonfocal. PSYCHIATRIC: Cooperative, appropriate mood and affect. Labs Lab Laboratory Tests Test 04/15/20 16:51 04/15/20 21:30 04/16/20 03:13 04/16/20 07:56 Glucose (Fingerstick) 264 mg/dL (70-99) 145 mg/dL (70-99) 95 mg/dL (70-99) White Blood Count 16.1 x10^3/uL (4.0-11.0) Red Blood Count 3.73 x10^6/uL (3.50-5.40) Hemoglobin 11.1 g/dL (12.0-15.5) Hematocrit 33.3 % (36.0-47.0) Mean Corpuscular Volume 89 fL (79-100) Mean Corpuscular Hemoglobin 30 pg (25-35) Mean Corpuscular Hemoglobin Concent 33 g/dL (31-37) Red Cell Distribution Width 17.1 % (11.5-14.5) Platelet Count 319 x10^3/uL (140-400) Neutrophils (%) (Auto) 66 % (31-73) Lymphocytes (%) (Auto) 24 % (24-48) Monocytes (%) (Auto) 6 % (0-9) Eosinophils (%) (Auto) 3 % (0-3) Basophils (%) (Auto) 1 % (0-3) Neutrophils # (Auto) 10.6 x10^3/uL (1.8-7.7) Lymphocytes # (Auto) 3.9 x10^3/uL (1.0-4.8) Monocytes # (Auto) 1.0 x10^3/uL (0.0-1.1) Eosinophils # (Auto) 0.4 x10^3/uL (0.0-0.7) Basophils # (Auto) 0.2 x10^3/uL (0.0-0.2) Sodium Level 142 mmol/L (136-145) Potassium Level 4.0 mmol/L (3.5-5.1) Chloride Level 103 mmol/L (98-107) Carbon Dioxide Level 27 mmol/L (21-32) Anion Gap 12 (6-14) Blood Urea Nitrogen 18 mg/dL (7-20) Creatinine 1.1 mg/dL (0.6-1.0) Estimated GFR (Cockcroft-Gault) 49.2 BUN/Creatinine Ratio 16 (6-20) Glucose Level 99 mg/dL (70-99) Calcium Level 7.2 mg/dL (8.5-10.1) Magnesium Level 1.9 mg/dL (1.8-2.4) Total Bilirubin 0.4 mg/dL (0.2-1.0) Aspartate Amino Transf (AST/SGOT) 34 U/L (15-37) Alanine Aminotransferase (ALT/SGPT) 197 U/L (14-59) Alkaline Phosphatase 94 U/L (46-116) Total Protein 6.3 g/dL (6.4-8.2) Albumin 3.0 g/dL (3.4-5.0) Albumin/Globulin Ratio 0.9 (1.0-1.7) Test 04/16/20 11:35 04/16/20 11:43 Glucose (Fingerstick) 145 mg/dL (70-99) 98 mg/dL (70-99) Micro Microbiology 04/15/20 Blood Culture - Preliminary, Resulted NO GROWTH AFTER 1 DAY Objective Assessment Chest pain with atrial fibrillation, rapid ventricular response. Leukocytosis and lactic acidosis. Hypoxemia with pulmonary infiltrates. Diabetes. Rheumatoid arthritis. History of colon resection. History of COVID-19 in 01/2020 with prolonged hospitalization. High BNP. Mild acute kidney injury. Hypomagnesemia, hypocalcemia. Plan Plan of Care Continue ceftriaxone and doxy (started 04/15) On steroids Probiotics off Cipro Follow-up labs. COVID-19 pending F/u cultures Supportive care Feeling better and eating. Less SOA and cough Attending Co-Sign Attending Co-Sign The patient was seen and interviewed as well as examined at the bedside. The chart was reviewed. The case was discussed. Agree with the plan of care. YUSRA VIZCARRA APRN Apr 16, 2020 12:03 MORELIA WHITNEY MD Apr 16, 2020 17:54
--- NOTE | 2020-04-16 12:23 | PDOC ---
HILARIO ENGLE CONFIGURATION TECHNICIAN 04/16/20 1223: CARDIO Progress Notes Date and Time Date of Service 04/16/2020 Time of Evaluation 1030 Subjective Subjective: No Chest Pain, No shortness of breath, No Palpitations Vitals Vitals Vital Signs Date Time Temp Pulse Resp B/P (MAP) Pulse Ox O2 Delivery O2 Flow Rate FiO2 04/16/20 09:14 108 149/89 04/16/20 08:00 Nasal Cannula 3.0 04/16/20 07:00 99.2 18 95 99.2 Weight Weight [ ] Input and Output Intake and Output Intake and Output 04/16/20 07:00 Intake Total 1220 ml Output Total 1500 ml Balance -280 ml Intake Oral 1120 ml IV Total 100 ml Output Urine Total 1500 ml Laboratory Labs Laboratory Tests Test 04/15/20 16:51 04/15/20 21:30 04/16/20 03:13 04/16/20 07:56 Glucose (Fingerstick) 264 mg/dL (70-99) 145 mg/dL (70-99) 95 mg/dL (70-99) White Blood Count 16.1 x10^3/uL (4.0-11.0) Red Blood Count 3.73 x10^6/uL (3.50-5.40) Hemoglobin 11.1 g/dL (12.0-15.5) Hematocrit 33.3 % (36.0-47.0) Mean Corpuscular Volume 89 fL (79-100) Mean Corpuscular Hemoglobin 30 pg (25-35) Mean Corpuscular Hemoglobin Concent 33 g/dL (31-37) Red Cell Distribution Width 17.1 % (11.5-14.5) Platelet Count 319 x10^3/uL (140-400) Neutrophils (%) (Auto) 66 % (31-73) Lymphocytes (%) (Auto) 24 % (24-48) Monocytes (%) (Auto) 6 % (0-9) Eosinophils (%) (Auto) 3 % (0-3) Basophils (%) (Auto) 1 % (0-3) Neutrophils # (Auto) 10.6 x10^3/uL (1.8-7.7) Lymphocytes # (Auto) 3.9 x10^3/uL (1.0-4.8) Monocytes # (Auto) 1.0 x10^3/uL (0.0-1.1) Eosinophils # (Auto) 0.4 x10^3/uL (0.0-0.7) Basophils # (Auto) 0.2 x10^3/uL (0.0-0.2) Sodium Level 142 mmol/L (136-145) Potassium Level 4.0 mmol/L (3.5-5.1) Chloride Level 103 mmol/L (98-107) Carbon Dioxide Level 27 mmol/L (21-32) Anion Gap 12 (6-14) Blood Urea Nitrogen 18 mg/dL (7-20) Creatinine 1.1 mg/dL (0.6-1.0) Estimated GFR (Cockcroft-Gault) 49.2 BUN/Creatinine Ratio 16 (6-20) Glucose Level 99 mg/dL (70-99) Calcium Level 7.2 mg/dL (8.5-10.1) Magnesium Level 1.9 mg/dL (1.8-2.4) Total Bilirubin 0.4 mg/dL (0.2-1.0) Aspartate Amino Transf (AST/SGOT) 34 U/L (15-37) Alanine Aminotransferase (ALT/SGPT) 197 U/L (14-59) Alkaline Phosphatase 94 U/L (46-116) Total Protein 6.3 g/dL (6.4-8.2) Albumin 3.0 g/dL (3.4-5.0) Albumin/Globulin Ratio 0.9 (1.0-1.7) Test 04/16/20 11:35 04/16/20 11:43 Glucose (Fingerstick) 145 mg/dL (70-99) 98 mg/dL (70-99) Microbiology Micro Microbiology 04/15/20 Blood Culture - Preliminary, Resulted NO GROWTH AFTER 1 DAY Physical Exam HEENT: Neck Supple W Full Motion Chest: Symmetric LUNGS: Clear to Auscultation Heart: S1S2, RRR (sinus tach) Abdomen: Soft N/T Extremities: No Calf Tenderness Neurology: alert, oriented, follow commands Other Exams Discussed with casket assembler Assessment 1. Possible Pneumonia: prior recovered Covid-19 2. AFIB RVR: in the setting of metabolic derangement and PNA. Paroxysmal per chart review. Presently SR/ST 3. Chest pain: likely from RVR 3. Possible sepsis 4. DARLENE on CKD 5. Mild Elevated troponin: suspect demand mediated 6. Acute on Chronic diastolic CHF: SOA better 7. DM2 8. Chronic steroid use with underlying hx of RA Recommendations Retest covid pending TTE if negative. Dsicussed with [facility] as an outpt as well as outpt stress test. Follow up in office. Replace Mg and K as warranted Continue with metoprolol. ASA for now. Will stop TTS 1 to allow room for further BB adjustment ABx per PCP Justicifation of Admission Dx: Justifications for Admission: Justification of Admission Dx: Yes Comminuty Aquired Pneumonia: Hemodynamic Instability AMITA BRUNNER MD 04/16/20 1626: CARDIO Progress Notes Plan Plan Case discussed with YARN POLISHING MACHINE OPERATOR. Chart reviewed. Supportive care from CV standpoint Overall constellation of symptoms suggestive of PNA and COVID, Trivial troponin elevation with normal EKG and non-cardiac chest pain. For now, continue pulmonary treatment. Will consider outpt stress testing. Will obtain echo when COVID testing complete. Thanks HILARIO ENGLE CONFIGURATION TECHNICIAN Apr 16, 2020 12:23 AMITA BRUNNER MD Apr 16, 2020 16:26
[2020-04-16] MEDS ORDERED: METOPROLOL TART IMMED RELEASE 25 MG TABLET. PO ONE (12:30)
--- NOTE | 2020-04-16 12:42 | PDOC ---
GENERAL General: vss and afebrile. awake and alert and ate 1/2 of breakfast. WBC 16.1K. electrolyte abnormalities corrected. chest clear, heart slightly tachycardic, ab domen benign. covid testing pending. remains on O2 and iv antibiotics for presumed pneumonia. has right sided chest pain today that is reproducible with palpation over costochondral area and will add celebrex. otherwise same. VITAL SIGNS/I&O Vital Signs/I&O: Vital Signs Date Time Temp Pulse Resp B/P (MAP) Pulse Ox O2 Delivery O2 Flow Rate FiO2 04/16/20 12:33 100 114/54 04/16/20 08:00 Nasal Cannula 3.0 04/16/20 07:00 99.2 18 95 99.2 I & O 04/15/20 04/15/20 04/16/20 15:00 23:00 07:00 Intake Total 490 ml 330 ml 400 ml Output Total 600 ml 500 ml 400 ml Balance -110 ml -170 ml 0 ml ALLERGIES Allergies: Allergies Coded Allergies Type Severity Reaction Last Updated Verified erythromycin base Allergy Intermediate 02/03/20 Yes MEDS Medications: Current Medications Medications (Trade) Dose Ordered Sig/Krystal Route PRN Reason Start Time Stop Time Status Last Admin Dose Admin Ceftriaxone Sodium (Rocephin) 1 gm Q24H IVP 04/15/20 18:00 04/15/20 16:35 Lactobacillus Rhamnosus (Culturelle) 1 cap BID PO 04/15/20 21:00 04/16/20 09:13 Magnesium Oxide (Magnesium Oxide) 400 mg BID PO 04/15/20 21:00 04/16/20 09:13 Metoprolol Tartrate (Lopressor) 25 mg Q6HRS PO 04/15/20 18:00 04/16/20 12:21 DC 04/16/20 06:17 Metoprolol Tartrate (Lopressor) 25 mg 1X ONCE PO 04/16/20 12:30 04/16/20 12:31 DC 04/16/20 12:33 LAB Lab: Laboratory Tests Test 04/15/20 16:51 04/15/20 21:30 04/16/20 03:13 04/16/20 07:56 Glucose (Fingerstick) 264 mg/dL (70-99) H 145 mg/dL (70-99) H 95 mg/dL (70-99) White Blood Count 16.1 x10^3/uL (4.0-11.0) H Red Blood Count 3.73 x10^6/uL (3.50-5.40) Hemoglobin 11.1 g/dL (12.0-15.5) L Hematocrit 33.3 % (36.0-47.0) L Mean Corpuscular Volume 89 fL (79-100) Mean Corpuscular Hemoglobin 30 pg (25-35) Mean Corpuscular Hemoglobin Concent 33 g/dL (31-37) Red Cell Distribution Width 17.1 % (11.5-14.5) H Platelet Count 319 x10^3/uL (140-400) Neutrophils (%) (Auto) 66 % (31-73) Lymphocytes (%) (Auto) 24 % (24-48) Monocytes (%) (Auto) 6 % (0-9) Eosinophils (%) (Auto) 3 % (0-3) Basophils (%) (Auto) 1 % (0-3) Neutrophils # (Auto) 10.6 x10^3/uL (1.8-7.7) H Lymphocytes # (Auto) 3.9 x10^3/uL (1.0-4.8) Monocytes # (Auto) 1.0 x10^3/uL (0.0-1.1) Eosinophils # (Auto) 0.4 x10^3/uL (0.0-0.7) Basophils # (Auto) 0.2 x10^3/uL (0.0-0.2) Sodium Level 142 mmol/L (136-145) Potassium Level 4.0 mmol/L (3.5-5.1) Chloride Level 103 mmol/L (98-107) Carbon Dioxide Level 27 mmol/L (21-32) Anion Gap 12 (6-14) Blood Urea Nitrogen 18 mg/dL (7-20) Creatinine 1.1 mg/dL (0.6-1.0) H Estimated GFR (Cockcroft-Gault) 49.2 BUN/Creatinine Ratio 16 (6-20) Glucose Level 99 mg/dL (70-99) Calcium Level 7.2 mg/dL (8.5-10.1) L Magnesium Level 1.9 mg/dL (1.8-2.4) Total Bilirubin 0.4 mg/dL (0.2-1.0) Aspartate Amino Transferase (AST) 34 U/L (15-37) Alanine Aminotransferase (ALT) 197 U/L (14-59) H Alkaline Phosphatase 94 U/L (46-116) Total Protein 6.3 g/dL (6.4-8.2) L Albumin 3.0 g/dL (3.4-5.0) L Albumin/Globulin Ratio 0.9 (1.0-1.7) L Test 04/16/20 11:35 04/16/20 11:43 Glucose (Fingerstick) 145 mg/dL (70-99) H 98 mg/dL (70-99) Laboratory Tests 04/16/20 03:13 Laboratory Tests 04/16/20 03:13 Justicifation of Admission Dx: Justifications for Admission: Justification of Admission Dx: Yes Comminuty Aquired Pneumonia: Hemodynamic Instability WOODY SAMPSON MD Apr 16, 2020 12:42
--- NOTE | 2020-04-16 13:21 | NUR ---
SW following. Discussed with RN, pt's COVID-19 test still pending. Pt requiring 3L oxygen, which she does not use at home. PT/OT ordered. SW will continue to follow.
[2020-04-16 15:00] VITALS: BP 112/63
[2020-04-16] MEDS: cefTRIAXone IV Push 1 GM VIAL. IVP SCH (17:22)
[2020-04-16] MEDS: CELECOXIB 100 MG CAPSULE. PO SCH (17:22)
[2020-04-16 19:00] VITALS: BP 100/58
[2020-04-16] MEDS: ALPRAZolam 0.25 MG TABLET PO PRN (21:11)
[2020-04-16] MEDS: ATORVASTATIN CALCIUM 10 MG TABLET. PO SCH (21:12)
[2020-04-16] MEDS: METOPROLOL TART IMMED RELEASE 50 MG TABLET. PO SCH (21:12)
[2020-04-16 22:20] VITALS: BP 122/66
[2020-04-17] VITALS (7 sets, daily range): BP systolic 115–144; BP diastolic 57–86
[2020-04-17] MEDS: METOPROLOL TART IMMED RELEASE 50 MG TABLET. PO SCH ×2 (08:25→20:45)
[2020-04-17] MEDS: amLODIPine BESYLATE 5 MG TABLET PO SCH (08:26)
[2020-04-17] MEDS: MAGNESIUM OXIDE 400 MG TABLET PO SCH ×2 (08:26→20:45)
[2020-04-17] MEDS: PANTOPRAZOLE 40 MG TABLET.DR. PO SCH (08:26)
[2020-04-17] MEDS: predniSONE 10 MG TABLET PO SCH (08:26)
[2020-04-17] MEDS: LACTOBACILLUS RHAMNOSUS GG 1 CAPSULE. PO SCH ×2 (08:26→20:45)
[2020-04-17] MEDS: DOXYCYCLINE HYCLATE 100 MG TABLET PO SCH ×2 (08:26→20:45)
[2020-04-17] MEDS: GLIMEPIRIDE 2 MG TABLET. PO SCH (08:26)
[2020-04-17] MEDS: ASPIRIN CHEWABLE 81 MG TABLET. PO SCH (08:26)
--- NOTE | 2020-04-17 08:59 | PDOC ---
GENERAL General: vss and afebrile. awake and alert and eating breakfast. chest pain resolved with celebrex. chest clear, heart normal rate, abdomen benign. sugars fair. will await covid testing and continue same. will need echo when negative for covid. VITAL SIGNS/I&O Vital Signs/I&O: Vital Signs Date Time Temp Pulse Resp B/P (MAP) Pulse Ox O2 Delivery O2 Flow Rate FiO2 04/17/20 08:26 86 121/86 04/17/20 07:30 96.1 14 96 Nasal Cannula 2.0 96.1 I & O 04/16/20 04/16/20 04/17/20 15:00 23:00 07:00 Intake Total 900 ml 390 ml 300 ml Output Total 900 ml 500 ml 500 ml Balance 0 ml -110 ml -200 ml ALLERGIES Allergies: Allergies Coded Allergies Type Severity Reaction Last Updated Verified erythromycin base Allergy Intermediate 02/03/20 Yes MEDS Medications: Current Medications Medications (Trade) Dose Ordered Sig/Krystal Route PRN Reason Start Time Stop Time Status Last Admin Dose Admin Metoprolol Tartrate (Lopressor) 50 mg BID PO 04/16/20 21:00 04/17/20 08:25 Metoprolol Tartrate (Lopressor) 25 mg 1X ONCE PO 04/16/20 12:30 04/16/20 12:31 DC 04/16/20 12:33 Celecoxib (CeleBREX) 200 mg DAILY16 PO 04/16/20 16:00 04/16/20 17:22 LAB Lab: Laboratory Tests Test 04/16/20 11:35 04/16/20 11:43 04/16/20 17:29 04/16/20 21:16 Glucose (Fingerstick) 145 mg/dL (70-99) H 98 mg/dL (70-99) 238 mg/dL (70-99) H 175 mg/dL (70-99) H Test 04/17/20 07:21 Glucose (Fingerstick) 103 mg/dL (70-99) H Justicifation of Admission Dx: Justifications for Admission: Justification of Admission Dx: Yes Comminuty Aquired Pneumonia: Hemodynamic Instability WOODY SAMPSON MD Apr 17, 2020 08:59
--- NOTE | 2020-04-17 13:21 | PDOC ---
PROGRESS NOTES Subjective Subjective Comfortable, no new complaints Objective Objective Vital Signs Date Time Temp Pulse Resp B/P (MAP) Pulse Ox O2 Delivery O2 Flow Rate FiO2 04/17/20 11:45 97.1 96 18 128/69 (88) 98 Nasal Cannula 2.0 97.1 Intake and Output 04/17/20 07:00 Intake Total 1590 ml Output Total 1900 ml Balance -310 ml Intake Oral 1590 ml Output Urine Total 1900 ml Physical Exam Abdomen: Soft Extremities: No cyanosis General: Alert, Oriented X3, Cooperative, No acute distress HEENT: Atraumatic Lungs: Other (diminished) Neuro: Normal speech Psych/Mental Status: Mental status NL Skin: No breakdown Assessment Assessment 1. Possible Pneumonia: prior recovered Covid-19. Repeat COVID test pending. ID team following. 2. AFIB RVR: in the setting of metabolic derangement and PNA. Paroxysmal per chart review. Presently sinus tachycardia. Plan for outpatient event monitor. 3. Chest pain: likely from RVR, currently resolved. Slight troponin elevation probably demand ischemia. Plan for 2D echo if COVID test negative. We will consider ischemic evaluation as an outpatient. 3. Acute on Chronic diastolic CHF: Better compensated. 4. DARLENE on CKD 5. DM2: Per IM Plan Plan of Care Problems Medical Problems: (1) Atrial fibrillation with RVR Status: Acute (2) Chest pain Status: Acute (3) Pneumonia Status: Acute Comment Review of Relevant I have reviewed the following items [place] (where applicable) has been applied. Labs Laboratory Tests Test 04/16/20 17:29 04/16/20 21:16 04/17/20 07:21 04/17/20 11:32 Glucose (Fingerstick) 238 mg/dL (70-99) 175 mg/dL (70-99) 103 mg/dL (70-99) 159 mg/dL (70-99) Microbiology 04/15/20 Blood Culture - Preliminary, Resulted NO GROWTH AFTER 2 DAYS Medications Current Medications Celecoxib (CeleBREX) 200 mg DAILY16 PO Last administered on 04/16/20at 17:22; Start 04/16/20 at 16:00 Clonidine HCl (Catapres Tts-2) 1 patch WEEKLY TD ; Start 04/21/20 at 09:00; Stop 04/15/20 at 16:43; Status DC Metoprolol Tartrate (Lopressor) 50 mg BID PO Last administered on 04/17/20at 08:25; Start 04/16/20 at 21:00 Vitals/I & O Vital Sign - Last 24 Hours 04/16/20 04/16/20 04/16/20 04/16/20 15:00 19:00 19:00 21:12 Temp 96.3 97.6 96.3 97.6 Pulse 98 96 98 B/P (MAP) 112/63 (79) 100/58 (72) 127/73 Pulse Ox 95 97 O2 Delivery Nasal Cannula Nasal Cannula Nasal Cannula O2 Flow Rate 3.0 2.0 2.0 04/16/20 04/17/20 04/17/20 04/17/20 22:20 02:11 07:30 07:30 Temp 96.5 97.0 96.1 96.5 97.0 96.1 Pulse 86 83 86 Resp 18 14 B/P (MAP) 122/66 (84) 133/66 (88) 121/86 (98) Pulse Ox 98 96 96 O2 Delivery Nasal Cannula Nasal Cannula Nasal Cannula O2 Flow Rate 2.0 2.0 2.0 2.0 04/17/20 04/17/20 04/17/20 08:25 08:26 11:45 Temp 97.1 97.1 Pulse 86 86 96 Resp 18 B/P (MAP) 121/86 121/86 128/69 (88) Pulse Ox 98 O2 Delivery Nasal Cannula O2 Flow Rate 2.0 Intake and Output 04/16/20 04/16/20 04/17/20 15:00 23:00 07:00 Intake Total 900 ml 390 ml 300 ml Output Total 900 ml 500 ml 500 ml Balance 0 ml -110 ml -200 ml LO RAMOS MD Apr 17, 2020 13:21
--- NOTE | 2020-04-17 14:41 | PDOC ---
Infectious Disease Note Subjective Subjective COVID-19 negative Little bit of a dry cough Denies SOA/heart palpitations/F/C/N/V ROS ROS as mentioned above Vital Sign Vital Signs Vital Signs Date Time Temp Pulse Resp B/P (MAP) Pulse Ox O2 Delivery O2 Flow Rate FiO2 04/17/20 11:45 97.1 96 18 128/69 (88) 98 Nasal Cannula 2.0 97.1 Physical Exam PHYSICAL EXAM GENERAL: Propped up in bed, alert in NAD HEENT: Oral cavity clear. NECK: Supple LUNGS: Clear bilaterally. HEART: S1, S2, irregular. ABDOMEN: Obese, soft, nontender EXTREMITIES: No gross edema, no cyanosis. DERMATOLOGIC: Warm, dry. No generalized rash. NEUROLOGIC: Alert and oriented x 3, grossly nonfocal. PSYCHIATRIC: Cooperative, appropriate mood and affect. PIV looks ok Labs Lab Laboratory Tests Test 04/16/20 17:29 04/16/20 21:16 04/17/20 07:21 04/17/20 11:32 Glucose (Fingerstick) 238 mg/dL (70-99) 175 mg/dL (70-99) 103 mg/dL (70-99) 159 mg/dL (70-99) Micro Microbiology 04/15/20 Blood Culture - Preliminary, Resulted NO GROWTH AFTER 1 DAY Objective Assessment Chest pain with atrial fibrillation, rapid ventricular response. Leukocytosis and lactic acidosis. Hypoxemia with pulmonary infiltrates. Diabetes. Rheumatoid arthritis. History of colon resection. History of COVID-19 in 01/2020 with prolonged hospitalization. High BNP. Mild acute kidney injury. Hypomagnesemia, hypocalcemia. Plan Plan of Care Continue ceftriaxone and doxy (started 04/15) On steroids Probiotics off Cipro Follow-up labs. COVID-19 neg F/u cultures Supportive care Wean abx soon Attending Co-Sign Attending Co-Sign The patient was seen and interviewed as well as examined at the bedside. The chart was reviewed. The case was discussed. Agree with the plan of care. YUSRA VIZCARRA APRN Apr 17, 2020 14:41 MORELIA WHITNEY MD Apr 17, 2020 15:08
[2020-04-17] MEDS: CELECOXIB 100 MG CAPSULE. PO SCH (15:48)
[2020-04-17] MEDS: cefTRIAXone IV Push 1 GM VIAL. IVP SCH (17:57)
[2020-04-17] MEDS: ATORVASTATIN CALCIUM 10 MG TABLET. PO SCH (20:45)
[2020-04-17] MEDS: ALPRAZolam 0.25 MG TABLET PO PRN (20:52)
[2020-04-18 03:40] VITALS: BP 136/65
[2020-04-18 05:33] LABS: BASO % 0 % (0-3); EOS # 0.2 x10^3/uL (0.0-0.7); EOS % 2 % (0-3); HEMATOCRIT 28.8 % (36.0-47.0); HEMOGLOBIN 9.6 g/dL (12.0-15.5); LYMPH # 2.2 x10^3/uL (1.0-4.8); LYMPH % 20 % (24-48); MEAN CORPUSCULAR HEMOGLOBIN 30 pg (25-35); MEAN CORPUSCULAR HGB CONC 33 g/dL (31-37); MEAN CORPUSCULAR VOLUME 89 fL (79-100); MONO # 0.6 x10^3/uL (0.0-1.1); MONO % 6 % (0-9); NEUT # 7.9 x10^3/uL (1.8-7.7); NEUT % 72 % (31-73); PLATELET COUNT 268 x10^3/uL (140-400); RED BLOOD COUNT 3.22 x10^6/uL (3.50-5.40); RED CELL DISTRIBUTION WIDTH 16.4 % (11.5-14.5)
[2020-04-18 06:01] LABS: ALBUMIN 2.5 g/dL (3.4-5.0); ALBUMIN/GLOBULIN RATIO 0.7 (1.0-1.7); CALCIUM 7.5 mg/dL (8.5-10.1); CREATININE 1.1 mg/dL (0.6-1.0); GFR 49.2; POTASSIUM 3.5 mmol/L (3.5-5.1); TOTAL BILIRUBIN 0.2 mg/dL (0.2-1.0)
[2020-04-18 07:00] VITALS: BP 131/72
[2020-04-18] MEDS: ASPIRIN CHEWABLE 81 MG TABLET. PO SCH (08:36)
[2020-04-18] MEDS: amLODIPine BESYLATE 5 MG TABLET PO SCH (08:36)
[2020-04-18] MEDS: MAGNESIUM OXIDE 400 MG TABLET PO SCH (08:37)
[2020-04-18] MEDS: GLIMEPIRIDE 2 MG TABLET. PO SCH (08:37)
[2020-04-18 08:38] VITALS: BP 131/72
[2020-04-18] MEDS: predniSONE 10 MG TABLET PO SCH (08:38)
[2020-04-18] MEDS: DOXYCYCLINE HYCLATE 100 MG TABLET PO SCH (08:38)
[2020-04-18] MEDS: LACTOBACILLUS RHAMNOSUS GG 1 CAPSULE. PO SCH (08:38)
[2020-04-18] MEDS: METOPROLOL TART IMMED RELEASE 50 MG TABLET. PO SCH (08:38)
[2020-04-18] MEDS: PANTOPRAZOLE 40 MG TABLET.DR. PO SCH (08:38)
[2020-04-18] MEDS ORDERED: DOXY100T PO (09:14)
[2020-04-18] MEDS ORDERED: METO50TA6 PO (09:14)
--- NOTE | 2020-04-18 09:26 | DS ---
DATE OF DISCHARGE: 04/18/2020 PRIMARY DIAGNOSIS: Atrial fibrillation with rapid ventricular response. ADDITIONAL DIAGNOSES: Chest pain, shortness of breath, right lower lobe pneumonia, status post COVID infection, diabetes, rheumatoid arthritis, hypoxia. CHIEF COMPLAINT AND HISTORY OF PRESENT ILLNESS: This 70-year-old white female admitted through the Emergency Room with sudden onset of shortness of breath and chest pain, found to be in AFib with a rapid ventricular response with a very mildly elevated troponin, which was self-limiting and a BNP of 15,000. SUMMARY OF STAY: The patient was admitted and initially treated with some Lasix, became hypoxic during the stay requiring oxygen up until 24 hours prior to discharge, was covered with antibiotics for right lower lobe pneumonia and leukocytosis. She did improve throughout the stay. Medicines were adjusted for the atrial fibrillation after initial Cardizem drip to control the rate. She was doing well by the time of discharge. We really wanted to get an echocardiogram, but by the time she became COVID negative on repeat testing, it was Monday and by Monday, they do not do echos on the s, so this will have to be done as an outpatient to better elucidate this elevated BNP, which was present during her last stay in addition and we were never able to do an echocardiogram. Clinically, she does not look like she has congestive heart failure at all and it may have all been acute due to the atrial fibrillation with poor output secondary to the same. DISPOSITION: The patient is discharged to home. She was discharged on ADA diet. ACTIVITY: As tolerated. FOLLOWUP: Office in 1 week. DISCHARGE MEDICATIONS: Listed on the med rec and have been addressed and basically differences will be that of stopping the clonidine patch. At this point, her metoprolol tartrate has been increased to 50 b.i.d. from 25 b.i.d. She will complete a 7-day course of doxycycline 100 b.i.d. as well as a 7-day course of Vantin 200 mg b.i.d. for another week for her pneumonia. WOODY SAMPSON MD DR: GARRY/siva JOB#: [id number] / [id number]
--- NOTE | 2020-04-18 10:01 | PDOC ---
PROGRESS NOTES Subjective Subjective Comfortable, denied any chest pain or palpitations. Objective Objective Vital Signs Date Time Temp Pulse Resp B/P (MAP) Pulse Ox O2 Delivery O2 Flow Rate FiO2 04/18/20 08:38 81 131/72 04/18/20 08:00 Room Air 2.0 04/18/20 07:00 98.4 18 93 98.4 Intake and Output 04/18/20 07:00 Intake Total 980 ml Output Total 1245 ml Balance -265 ml Intake Oral 980 ml Output Urine Total 1245 ml # Voids 1 Physical Exam Abdomen: Soft Extremities: No cyanosis General: Alert, Oriented X3, Cooperative, No acute distress HEENT: Atraumatic Lungs: Other (diminished) Neuro: Normal speech Psych/Mental Status: Mental status NL Skin: No breakdown Assessment Assessment 1. Possible Pneumonia: prior recovered Covid-19. Repeat COVID test negative. ID team following. 2. AFIB RVR: in the setting of metabolic derangement and PNA. Paroxysmal per chart review. Presently in sinus rhythm. Plan for outpatient event monitor. 3. Chest pain: likely from RVR, currently resolved. Slight troponin elevation probably demand ischemia. Plan for 2D echo if COVID test negative. We will consider ischemic evaluation as an outpatient. 3. Acute on Chronic diastolic CHF: Better compensated. 4. DARLENE on CKD 5. DM2: Per IM Plan Plan of Care Problems Medical Problems: (1) Atrial fibrillation with RVR Status: Acute (2) Chest pain Status: Acute (3) Pneumonia Status: Acute Comment Review of Relevant I have reviewed the following items [place] (where applicable) has been applied. Labs Laboratory Tests Test 04/17/20 11:32 04/17/20 17:13 04/17/20 20:51 04/18/20 04:05 Glucose (Fingerstick) 159 mg/dL (70-99) 203 mg/dL (70-99) 255 mg/dL (70-99) White Blood Count 11.0 x10^3/uL (4.0-11.0) Red Blood Count 3.22 x10^6/uL (3.50-5.40) Hemoglobin 9.6 g/dL (12.0-15.5) Hematocrit 28.8 % (36.0-47.0) Mean Corpuscular Volume 89 fL (79-100) Mean Corpuscular Hemoglobin 30 pg (25-35) Mean Corpuscular Hemoglobin Concent 33 g/dL (31-37) Red Cell Distribution Width 16.4 % (11.5-14.5) Platelet Count 268 x10^3/uL (140-400) Neutrophils (%) (Auto) 72 % (31-73) Lymphocytes (%) (Auto) 20 % (24-48) Monocytes (%) (Auto) 6 % (0-9) Eosinophils (%) (Auto) 2 % (0-3) Basophils (%) (Auto) 0 % (0-3) Neutrophils # (Auto) 7.9 x10^3/uL (1.8-7.7) Lymphocytes # (Auto) 2.2 x10^3/uL (1.0-4.8) Monocytes # (Auto) 0.6 x10^3/uL (0.0-1.1) Eosinophils # (Auto) 0.2 x10^3/uL (0.0-0.7) Basophils # (Auto) 0.0 x10^3/uL (0.0-0.2) Sodium Level 143 mmol/L (136-145) Potassium Level 3.5 mmol/L (3.5-5.1) Chloride Level 107 mmol/L (98-107) Carbon Dioxide Level 25 mmol/L (21-32) Anion Gap 11 (6-14) Blood Urea Nitrogen 20 mg/dL (7-20) Creatinine 1.1 mg/dL (0.6-1.0) Estimated GFR (Cockcroft-Gault) 49.2 BUN/Creatinine Ratio 18 (6-20) Glucose Level 131 mg/dL (70-99) Calcium Level 7.5 mg/dL (8.5-10.1) Total Bilirubin 0.2 mg/dL (0.2-1.0) Aspartate Amino Transf (AST/SGOT) 15 U/L (15-37) Alanine Aminotransferase (ALT/SGPT) 85 U/L (14-59) Alkaline Phosphatase 71 U/L (46-116) Total Protein 6.0 g/dL (6.4-8.2) Albumin 2.5 g/dL (3.4-5.0) Albumin/Globulin Ratio 0.7 (1.0-1.7) Test 04/18/20 07:38 Glucose (Fingerstick) 71 mg/dL (70-99) Microbiology 04/15/20 Blood Culture - Preliminary, Resulted NO GROWTH AFTER 3 DAYS Medications Current Medications Clonidine HCl (Catapres Tts-2) 1 patch WEEKLY TD ; Start 04/21/20 at 09:00; Stop 04/15/20 at 16:43; Status DC Vitals/I & O Vital Sign - Last 24 Hours 04/17/20 04/17/20 04/17/20 04/17/20 11:45 15:00 16:04 19:35 Temp 97.1 96.4 97.9 97.1 96.4 97.9 Pulse 96 101 105 Resp 18 16 18 B/P (MAP) 128/69 (88) 131/69 (89) 144/73 (96) Pulse Ox 98 92 96 O2 Delivery Nasal Cannula Room Air Room Air Room Air O2 Flow Rate 2.0 04/17/20 04/17/20 04/17/20 04/18/20 19:46 20:45 23:00 03:40 Temp 98.0 97.9 97.9 98.0 97.9 97.9 Pulse 103 103 99 100 Resp 21 22 22 B/P (MAP) 115/59 (77) 115/59 128/57 (80) 136/65 (88) Pulse Ox 95 93 96 O2 Delivery Room Air Room Air Room Air 04/18/20 04/18/20 04/18/20 04/18/20 07:00 08:00 08:36 08:38 Temp 98.4 98.4 Pulse 81 81 81 Resp 18 B/P (MAP) 131/72 (91) 131/72 131/72 Pulse Ox 93 O2 Delivery Room Air Room Air O2 Flow Rate 2.0 Intake and Output 04/17/20 04/17/20 04/18/20 15:00 23:00 07:00 Intake Total 380 ml 600 ml Output Total 400 ml 225 ml 620 ml Balance -20 ml -225 ml -20 ml LO RAMOS MD Apr 18, 2020 10:00
--- NOTE | 2020-04-18 11:00 | NUR ---
PATIENT DISCHARGED TO HOME. DISCHARGE INSTRUCTIONS GIVEN TO FAMILY AND PATIENT. PIV AND HEART MONITOR REMOVED. ESCORTED PATIENT OFF UNIT PER WHEELCHAIR INTO A PRIVATE VEHICLE.
[2020-04-21] MEDS ORDERED: cloNIDine TTS-2 1 PATCH PATCH TD SCH (09:00)
[2020-06-06] MEDS ORDERED: ATOR40TA PO (06:22)
[2020-06-06] MEDS ORDERED: PRED1TAB3 PO (06:22)
[2020-06-06] MEDS ORDERED: GLIM1TAB7 PO (06:22)
[2020-06-06] MEDS ORDERED: CELE200C PO (06:22)
[2020-06-06] MEDS ORDERED: SACU1TAB PO (06:22)
[2020-06-06] MEDS ORDERED: FURO40TA4 PO (06:22)
[2020-06-12] MEDS ORDERED: POTA10TA12 PO (07:55)
[2020-06-12] MEDS ORDERED: APIX5TAB PO (07:55)
[2020-06-12] MEDS ORDERED: METO-239 PO (07:55)
[2020-06-12] MEDS ORDERED: AMIO200T7 PO (07:55)
== END 2020-04-18 11:00 | disposition home or self-care (01) | DRG 193 ==
LOC: ER 16:45 → 6 SOUTH 17:47 → 2 SOUTH 04-17 16:14
PROVIDERS: ADMIT Family Medicine; ATTEND Family Medicine
DX: J18.9 Pneumonia, unspecified organism (principal); I50.33 Acute on chronic diastolic (congestive) heart failure; J96.91 Respiratory failure, unspecified with hypoxia; N17.9 Acute kidney failure, unspecified; N39.0 Urinary tract infection, site not specified; E46 Unspecified protein-calorie malnutrition; E87.2 Acidosis; I48.0 Paroxysmal atrial fibrillation; E87.6 Hypokalemia; M06.9 Rheumatoid arthritis, unspecified; E83.42 Hypomagnesemia; E11.22 Type 2 diabetes mellitus with diabetic chronic kidney disease; N18.9 Chronic kidney disease, unspecified; E83.51 Hypocalcemia; I25.10 Atherosclerotic heart disease of native coronary artery without angina pectoris; Z20.828 Contact with and (suspected) exposure to other viral communicable diseases; Z68.28 Body mass index [BMI] 28.0-28.9, adult; Z87.01 Personal history of pneumonia (recurrent); Z79.52 Long term (current) use of systemic steroids; Z86.19 Personal history of other infectious and parasitic diseases; Z90.49 Acquired absence of other specified parts of digestive tract; Z88.1 Allergy status to other antibiotic agents
CPT/HCPCS: 36415; 71045; 80048; 80053; 82962; 83605; 83690; 83735; 83880; 84145; 84439; 84443; 84484; 85007; 85025; 85610; 85730; 87040; 93005; 96365; 96366; 96375; 99291; J0696; J1940; J2270; J3475; J3490; J7030; J7512; G0378; U0003-CS

== ENCOUNTER → 2020-05-11 | Outpatient (CLI) | payer MEDICARE, OTHER ==
[2020-04-18 08:38] VITALS: BP 131/72
[~2020-05-11] MED LIST changes: +AMLO5TAB10 PO; +CIPR250T30 PO; +DOXY100T PO; +GLIM4TAB8 PO; +MELA5TAB20 PO; +METO50TA6 PO; +PANT40TA77 PO; +PRED1TAB3 PO
--- NOTE | 2020-05-11 17:04 | CARD ---
MR#: [id number] Date of Study: 05/11/2020 Ordering Physician: AMITA BRUNNER, Referring Physician: AMITA BRUNNER, Tech: Vanesa Patel [facility] APPROVED REPORT EXAM: Two-dimensional and M-mode echocardiogram with Doppler and color Doppler. Other Information Quality : Good INDICATION Dyspnea Congestive Heart Failure 2D DIMENSIONS RVDd2.8 (2.9-3.5cm)Left Atrium(2D)4.3 (1.6-4.0cm) IVSd1.0 (0.7-1.1cm)Aortic Root(2D)2.8 (2.0-3.7cm) LVDd6.0 (3.9-5.9cm)LVOT Diameter2.3 (1.8-2.4cm) PWd0.9 (0.7-1.1cm)LVDs5.1 (2.5-4.0cm) FS (%) 14.8 %SV55.7 ml LVEF(%)30.8 (>50%) Aortic Valve AoV Peak Cruz.109.2cm/sAoV VTI17.6cm AO Peak GR.4.8mmHgLVOT Peak Cruz.69.4cm/s LVOT VTI 10.24cmAO Mean GR.3mmHg ZOLTAN (VMAX)2.39af8ULK (VTI)2.39cm2 AI P 1/2 Gpxn184qd Mitral Valve MV E Fkxjzjre170.9cm/sMV DECEL XOXE051dt MV A Tpfytxfp32.2cm/sMV KPC24gp E/A Ratio1.9MVA (PHT)6.10cm2 TDI E/Lateral E'12.3 Tricuspid Valve TR P. Dezeemlf204da/sRAP SYIMLSMO8tqJl TR Peak Gr.40xkAkITUO51kbBg Pulmonary Vein S1 Xmwwdafc80.1cm/sD2 Vsmdzfwm69.3cm/s LEFT VENTRICLE The Left Ventricle is mildly dilated. There is normal left ventricular wall thickness. Left ventricle ejection fraction is moderately to severely impaired. The Ejection Fraction is 25-30%. There is glob al hypokinesis of the left ventricle. Transmitral Doppler flow pattern is Grade II-pseudonormal filli ng dynamics. RIGHT VENTRICLE The right ventricle is normal size. The right ventricular systolic function is normal. ATRIA The left atrium is mildly dilated. The right atrium size is normal. The interatrial septum is intact with no evidence for an atrial septal defect or patent foramen ovale as noted on 2-D or Doppler imagi ng. AORTIC VALVE The aortic valve is calcified but opens well. Doppler and Color Flow revealed mild aortic regurgitati on. There is no significant aortic valvular stenosis. MITRAL VALVE The mitral valve is calcified but opens well. There is no evidence of mitral valve prolapse. There is no mitral valve stenosis. Doppler and Color-flow revealed severe mitral regurgitation. TRICUSPID VALVE The tricuspid valve is normal in structure and function. Doppler and Color Flow revealed mild tricusp id regurgitation. There is moderate pulmonary hypertension. The PA pressure was estimated at 42 mmHg. There is no tricuspid valve stenosis. PULMONIC VALVE The pulmonic valve is not well visualized. Doppler and Color Flow revealed mild pulmonic valvular reg urgitation. There is no pulmonic valvular stenosis. GREAT VESSELS The aortic root is normal in size. The ascending aorta is not well seen. The IVC is normal in size an d collapses >50% with inspiration. PERICARDIAL EFFUSION There is no evidence of significant pericardial effusion. Critical Notification Critical Value: No <Conclusion> Left ventricle ejection fraction is moderately to severely impaired. The Ejection Fraction is 25-30%. There is global hypokinesis of the left ventricle. Doppler and Color-flow revealed severe mitral regurgitation. Doppler and Color Flow revealed mild tricuspid regurgitation. There is moderate pulmonary hypertensio n. The PA pressure was estimated at 42 mmHg. Signed by : Amita Brunner, Electronically Approved : 05/11/2020 17:03:57
== END | disposition home or self-care (01) ==
LOC: ECHO 15:10
PROVIDERS: ATTEND Internal Medicine Cardiovascular Disease
DX: I08.8 Other rheumatic multiple valve diseases (principal); I50.9 Heart failure, unspecified; I27.20 Pulmonary hypertension, unspecified
CPT/HCPCS: 93306

== ENCOUNTER → 2020-05-29 | Outpatient (CLI) | payer MEDICARE, OTHER ==
[~2020-05-29] MED LIST changes: +AMIO200T7 PO; +APIX5TAB PO; +ATOR40TA PO; +CELE200C PO; +FURO40TA4 PO; +GLIM1TAB7 PO; +METO-239 PO; +POTA10TA12 PO; +REGADENOSON 0.4 MG/5 ML DISP.SYRIN. IV ONE; +SACU1TAB PO
--- NOTE | 2020-05-31 11:44 | RAD ---
MR#: [id number] Date of Study: 05/29/2020 Ordering Physician: AMITA VELAZQUEZ, Referring Physician: JAVIER [place] Tech: RT Lelo Schmid) (N) APPROVED REPORT Test Type: Pharmacological Stress Nurse/Tech: Alex Puente RN Test Indications: Chest Pain, A-fib Cardiac History: HTN, CHF, High Cholesterol, See EMR. Medications: ASA, See EMR. Medical History: DM, Covid 01/2020=Dialysis during illness, See EMR. Resting ECG: ST Resting Heart Rate: 112 bpm Resting Blood Pressure: 96/57mmHg Pretest Chest Pain: No chest pain Nurse/Tech Notes Lungs CTA, Heart tones regular. Consent: The procedure was explained to the patient in lay terms. Informed consent was witnessed. Cassius eout was entered into [employer]. History and Stress Test performed by RT Aubree RosadoR) (N) Pharm. Details Pharmacologic stress testing was performed using 0.4mg per 5ml of regadenoson given intravenously ove r 7-10 seconds. Stress Symptoms Nausea and Dyspnea. The patient was nauseated prior to test. Blood sugar stjhsuo=788. POST EXERCISE Reason for Termination: Infusion complete Max HR: 140 bpm Max Blood Pressure: 130/68mmHg Blood Pressure response to exercise: Normal blood pressure response during stress. Heart Rate response to exercise: WNL Chest Pain: No. Arrhythmia: No. ST Change: No. INTERPRETATION Stress EKG Conclusion: No evidence of stress induced EKG changes Imaging Protocol IMAGE PROTOCOL: Rest Tc-99m/stress Tc-99m 1 day Rest: Stress: Viability: Radiopharm.Tc99m AikmqvxnfFe22y Sestamibi Wlqk04wUl 32mCi Duration 13.5min. 13.5min. Img Date 05/29/2020 05/29/2020 Inj-Img Jlly41rho. 60min. Rest Admin Site:IV - Left AntecubitalAdministrator:RT Lelo Schmid)(N) Stress Admin Site: IV - Left AntecubitalAdministrator: RT Lelo Rosado)(N) STRESS DATA End Diast. Vol.108.0mlAv. Heart Ltzp394.0bpm LVEDV index BSA61.0mlCardiac Output0.0L/min End Syst. Vol.76.0mlCO Index BSA0.0L/min LVESV index BSA43.0mlMyocardial Yyfx291.0g Eject. Nqsalykn36.0% Stress Scores Regional WT3.00Summed WT47.00 Regional WM1.00Summed WM34.00 LV Perfusion Normal perfusion at stress/rest. Wall Motion Severe LV dysfunction. EF 30% LV Perf. Quant 17 Seg. SSS1.00 17 Seg. SRS3.00 17 Seg. SDS1.00 Stress Defect Extent (% LAD)4.40Rest Defect Extent (% LAD)0.00Rev. Defect Extent (% LAD)2.50 Stress Defect Extent (% LCX) 0.00Rest Defect Extent (% LCX)17.50Rev. Defect Extent (% LCX)0.00 Stress Defect Extent (% RCA)0.00Rest Defect Extent (% RCA)3.30Rev. Defect Extent (% RCA)0.00 Stress Defect Extent (% KOREY)3.90Rest Defect Extent (% KOREY)7.40Rev. Defect Extent (% KOREY)2.80 Other Information Quality:Average Risk Assessment: High Risk Conclusion 1. No evidence of stress induced EKG changes 2. Normal perfusion at stress/rest. 3. Severe LV dysfunction. EF 30% 4. High risk for future CV events. Signed by : Amita Velazquez, Electronically Approved : 05/31/2020 11:43:40
== END | disposition home or self-care (01) ==
LOC: NM 09:48
PROVIDERS: ATTEND Internal Medicine Cardiovascular Disease
DX: R07.89 Other chest pain (principal); I48.91 Unspecified atrial fibrillation; I10 Essential (primary) hypertension; I50.9 Heart failure, unspecified
CPT/HCPCS: 78452; 82962; 93017; A9500; J2785

== ENCOUNTER → 2020-10-01 | Outpatient (CLI) | payer MEDICARE, OTHER ==
[2020-06-12 15:00] VITALS: BP 120/61
[~2020-10-01] MED LIST changes: +AMLO-186 PO; +AMLO-187 PO; -AMLO10TA8 PO; -AMLO5TAB10 PO; -REGADENOSON 0.4 MG/5 ML DISP.SYRIN. IV ONE
--- NOTE | 2020-10-01 17:30 | CARD ---
MR#: [id number] Date of Study: 10/01/2020 Ordering Physician: AMITA BRUNNER, Referring Physician: AMITA BRUNNER, Tech: Vanesa Patel [facility] APPROVED REPORT EXAM: Two-dimensional and M-mode echocardiogram with Doppler and color Doppler. Other Information Quality : Fair INDICATION Paroxysmal Atrial Fibrillation, Life Vest, Post Covid Echo Enhancing Agent Agent/Amount Used: Lumason mL 2D DIMENSIONS RVDd2.5 (2.9-3.5cm)Left Atrium(2D)3.9 (1.6-4.0cm) IVSd1.1 (0.7-1.1cm)Aortic Root(2D)3.2 (2.0-3.7cm) LVDd4.8 (3.9-5.9cm)LVOT Diameter2.1 (1.8-2.4cm) PWd1.1 (0.7-1.1cm)LVDs3.3 (2.5-4.0cm) FS (%) 20.0 %SV18.5 ml Aortic Valve AoV Peak Cruz.136.9cm/sAoV VTI21.9cm AO Peak GR.7.5mmHgLVOT Peak Cruz.90.4cm/s LVOT VTI 15.73cmAO Mean GR.5mmHg ZOLTAN (VMAX)2.88cb5TWH (VTI)2.50cm2 AI P 1/2 Bhpg434ax Mitral Valve MV E Jmwibabd77.8cm/sMV DECEL PRSJ103ye MV A Hdekfzks10.5cm/sMV RCZ41ii E/A Ratio0.6MVA (PHT)7.10cm2 TDI E/Lateral E'6.9E/Medial E'8.5 Pulmonary Vein S1 Cmskvzwm90.4cm/sD2 Cazcnihx23.6cm/s LEFT VENTRICLE The left ventricle is normal size. There is normal left ventricular wall thickness. The systolic func tion is mildly impaired. The Ejection Fraction is 40-45%. There is mild hypokinesis in the basal sept al and mid anteroseptal swenson. Transmitral Doppler flow pattern is Grade I-abnormal relaxation patter n. RIGHT VENTRICLE The right ventricle is normal size. The right ventricular systolic function is normal. ATRIA The left atrium size is normal. The right atrium size is normal. The interatrial septum is intact wit h no evidence for an atrial septal defect or patent foramen ovale as noted on 2-D or Doppler imaging. AORTIC VALVE The aortic valve is normal in structure and function. Doppler and Color Flow revealed trace aortic re gurgitation. There is no significant aortic valvular stenosis. MITRAL VALVE The mitral valve is normal in structure and function. Mitral annular calcification is mild. There is no evidence of mitral valve prolapse. There is no mitral valve stenosis. Doppler and Color-flow revea led trace mitral regurgitation. TRICUSPID VALVE The tricuspid valve is normal in structure and function. Doppler and Color Flow revealed no tricuspid valve regurgitation noted. There is no tricuspid valve stenosis. PULMONIC VALVE The pulmonic valve is not well visualized. Doppler and Color Flow revealed no pulmonic valvular regur gitation. There is no pulmonic valvular stenosis. GREAT VESSELS The aortic root is normal in size. The ascending aorta is not well seen. The IVC is normal in size an d collapses >50% with inspiration. PERICARDIAL EFFUSION There is no evidence of significant pericardial effusion. Critical Notification Critical Value: No <Conclusion> The left ventricle is normal size. The systolic function is mildly impaired. The Ejection Fraction is 40-45%. There is mild hypokinesis in the basal septal and mid anteroseptal swenson. Doppler and Color Flow revealed trace aortic regurgitation. There is no significant aortic valvular stenosis. Doppler and Color-flow revealed trace mitral regurgitation. Doppler and Color Flow revealed no tricuspid valve regurgitation noted. Signed by : Lee Hernandez MD Electronically Approved : 10/01/2020 17:30:01
== END ==
LOC: ECHO 13:32
PROVIDERS: ATTEND Internal Medicine Cardiovascular Disease
DX: I34.0 Nonrheumatic mitral (valve) insufficiency (principal); R07.9 Chest pain, unspecified; I48.0 Paroxysmal atrial fibrillation
CPT/HCPCS: 93306

== ENCOUNTER → 2021-06-11 | Outpatient (CLI) | payer MEDICARE, OTHER ==
[2021-01-13 10:47] VITALS: BP 149/68
[~2021-06-11] MED LIST changes: +ACET325T9 PO; +ACET500T68 PO; +AMIO200T6 PO; +CIPR500T94 PO; +METF500T16 PO; +METO50TA4 PO; +POTA10TA6 PO; +SACU1TAB7 PO; +SPIR25TA5 PO; +VALA500T5 PO
--- NOTE | 2021-06-13 10:32 | CARD ---
MR#: [id number] Date of Study: 06/11/2021 Ordering Physician: AMITA BRUNNER, Referring Physician: AMITA BRUNNER, Tech: Loy Kellogg [facility] APPROVED REPORT EXAM: Two-dimensional and M-mode echocardiogram with Doppler and color Doppler. INDICATION Cardiomyopathy RISK FACTORS Hypertension 2D DIMENSIONS Left Atrium(2D)4.3 (1.6-4.0cm)IVSd1.3 (0.7-1.1cm) Aortic Root(2D)3.1 (2.0-3.7cm)LVDd4.8 (3.9-5.9cm) LVOT Diameter1.8 (1.8-2.4cm)PWd1.3 (0.7-1.1cm) LVDs2.8 (2.5-4.0cm)FS (%) 41.2 % SV77.0 mlLVEF(%)71.9 (>50%) Aortic Valve AoV Peak Cruz.137.5cm/sAoV VTI22.8cm AO Peak GR.7.6mmHgLVOT Peak Cruz.81.2cm/s LVOT VTI 17.03cmAO Mean GR.5mmHg ZOLTAN (VMAX)1.80yq0ZRT (VTI)1.87cm2 AI P 1/2 Gkxz632ip Mitral Valve MV E Cbljrdqf26.2cm/sMV DECEL ERFX667yy MV A Urbhpnwm93.0cm/sMV DYT36jh E/A Ratio0.8MVA (PHT)2.83cm2 TDI E/Lateral E'14.4E/Medial E'18.1 Pulmonary Valve PV Peak Eepihtlb02.8cm/sPV Peak Grad.4mmHg Tricuspid Valve TR P. Tqfvjghd754ws/sTR Peak Gr.27mmHg Pulmonary Vein S1 Hxqqwbol81.2cm/sD2 Ddpmfmiq31.9cm/s LEFT VENTRICLE The left ventricle is normal size. There is mild concentric left ventricular hypertrophy. The left ve ntricular systolic function is normal and the ejection fraction is within normal range. EF 55% There is normal LV segmental wall motion. Tissue Doppler imaging reveals mild left ventricular diastolic dy sfunction. RIGHT VENTRICLE The right ventricle is normal size. There is normal right ventricular wall thickness. The right ventr icular systolic function is normal. ATRIA The left atrium is borderline dilated. The right atrium size is normal. The interatrial septum is int act with no evidence for an atrial septal defect or patent foramen ovale as noted on 2-D or Doppler i maging. AORTIC VALVE The aortic valve is mildly sclerotic. Doppler and Color Flow revealed trace aortic regurgitation. The re is no significant aortic valvular stenosis. There is no aortic valvular vegetation. MITRAL VALVE Mitral annular calcification is mild. There is no evidence of mitral valve prolapse. There is no mitr al valve stenosis. Doppler and Color-flow revealed trace to mild mitral regurgitation. TRICUSPID VALVE The tricuspid valve is normal in structure and function. Doppler and Color Flow revealed trace tricus pid regurgitation. There is no tricuspid valve prolapse or vegetation. There is no tricuspid valve st enosis. PULMONIC VALVE Doppler and Color Flow revealed no pulmonic valvular regurgitation. There is no pulmonic valvular praneeth nosis. GREAT VESSELS The aortic root is normal in size. The ascending aorta is normal in size. The IVC is normal in size a nd collapses >50% with inspiration. PERICARDIAL EFFUSION There is no pleural effusion. There is no evidence of significant pericardial effusion. Critical Notification Critical Value: No <Conclusion> The left ventricular systolic function is normal and the ejection fraction is within normal range. EF 55% There is normal LV segmental wall motion. Technically difficult study. Signed by : Amita Brunner, Electronically Approved : 06/13/2021 10:32:37
== END ==
LOC: ECHO 13:52
PROVIDERS: ATTEND Internal Medicine Cardiovascular Disease
DX: I08.0 Rheumatic disorders of both mitral and aortic valves (principal); I10 Essential (primary) hypertension; I42.9 Cardiomyopathy, unspecified
CPT/HCPCS: 93306

== ENCOUNTER → 2021-07-15 | Outpatient (CLI) | payer MEDICARE, OTHER ==
[2021-01-13 10:47] VITALS: BP 149/68
--- NOTE | 2021-07-15 12:29 | CARD ---
MR#: [id number] Date of Study: 07/15/2021 Ordering Physician: AMITA BRUNNER, Referring Physician: AMITA BRUNNER, Tech: APPROVED REPORT EXAM Loop Recorder INDICATIONS Procedure: Implantable loop recorder Reason for procedure: Atrial fibrillation/arrhythmia Procedure details: After appropriate informed consent the left chest was prepped and draped in usual sterile fashion. 2 0 mL of 1% local lidocaine anesthesia was used to infiltrate the left parasternal space. Next, a 0.5 inch incision was made and a subcutaneous tunnel was created. Next a [employer] LINQ implanta ble loop recorder with serial number [id number] was delivered with the delivery tool and appropriate sensing was obtained at 0.35 mV. The incision was then closed with a Steri-Strip. No acute complic ations noted. CONCLUSION 1. Successful insertion of a [employer] loop recorder for atrial fibrillation monitoring. Signed by : Amita Brunner, Electronically Approved : 07/15/2021 12:29:12
== END | disposition home or self-care (01) ==
LOC: LINQ 11:11
PROVIDERS: ATTEND Internal Medicine Cardiovascular Disease
DX: I48.91 Unspecified atrial fibrillation (principal); I25.10 Atherosclerotic heart disease of native coronary artery without angina pectoris; I50.9 Heart failure, unspecified; E78.00 Pure hypercholesterolemia, unspecified; E11.9 Type 2 diabetes mellitus without complications; K21.9 Gastro-esophageal reflux disease without esophagitis; M06.9 Rheumatoid arthritis, unspecified; Z87.440 Personal history of urinary (tract) infections; Z79.82 Long term (current) use of aspirin; Z79.84 Long term (current) use of oral hypoglycemic drugs; Z79.899 Other long term (current) drug therapy; Z98.890 Other specified postprocedural states; Z72.89 Other problems related to lifestyle; Z88.1 Allergy status to other antibiotic agents; Z95.818 Presence of other cardiac implants and grafts
CPT/HCPCS: 33285; C1764